=== PATIENT | female | born 1995 | race Caucasian/White ===

== ENCOUNTER 2022-04-05 13:25 | Inpatient (IN) | payer OTHER, SELFPAY ==
--- NOTE | ~2022-04-05 | CT_ITS ---
EXAMINATION: NONCONTRAST HEAD CT NONCONTRAST CERVICAL SPINE CT INDICATION INFORMATION: Syncope versus seizure. Head trauma and neck pain COMPARISON: None TECHNIQUE: Separate noncontrast CT examinations of the head and cervical spine were performed. Coronal and sagittal images were created for each examination at the technologist workstation. This CT examination was performed using dose optimization techniques as appropriate, variously including the following: *Automated exposure control *Adjustment of mA and/or kV according to patient size (this includes techniques or standardized protocols for targeted exams where dose is matched to indication/reason for exam; i.e. extremities or head) *Use of iterative reconstruction technique DLP: 1024 mGy-cm FINDINGS: HEAD: No intra or extra-axial fluid collection, hemorrhage, or mass. No ventriculomegaly. No midline shift or herniation. Basal cisterns are patent. Iglesias-white matter differentiation is maintained. No territorial encephalomalacia. No significant volume loss. There is no abnormal attenuation within the brain parenchyma. No calvarial fracture or soft tissue abnormality. Small mucous retention cyst in the left maxillary sinus. Mastoid air cells are normally aerated. CERVICAL SPINE: Alignment: Normal. No subluxation. Vertebra: No acute fracture. No prevertebral soft tissue swelling. Degenerative disc disease: No significant. Preserved intervertebral disc heights. Other findings: No cervical lymphadenopathy. Visualized major salivary glands and thyroid gland are unremarkable. Visualized lung apices are clear. CT/CT cervical spine wo con IMPRESSION: 1. No intracranial hemorrhage or other acute intracranial abnormality. 2. No traumatic subluxation or acute cervical spine fracture.
--- NOTE | ~2022-04-05 | US_ITS ---
EXAMINATION: US ABDOMEN COMPLETE CLINICAL INFORMATION: Abnormal abdominal CT. Check vascular flow to mesentery. Rule out Budd-Chiari and portal vein thrombosis.. COMPARISON: CT of the abdomen and pelvis from yesterday TECHNIQUE: Real-time imaging of the abdominal viscera. Doppler, color and grayscale evaluation of the hepatic and mesenteric vessels using grayscale, color Doppler and waveform spectral analysis FINDINGS: PANCREAS: Not well visualized. ABDOMINAL AORTA: The proximal, mid, and distal segments are normal in caliber. INFERIOR VENA CAVA: Visualized portions are normal. LIVER: Liver echotexture is increased. The liver is slightly enlarged, right lobe measuring 21 cm in length. Parenchymal echogenicity is normal. No focal hepatic lesion. There is no intrahepatic biliary duct dilatation seen. GALLBLADDER: Normal. The gallbladder is physiologically distended without evidence of stones, sludge, polyps, wall thickening or pericholecystic fluid. COMMON BILE DUCT: Normal in caliber measuring 0.4 cm in diameter. RIGHT KIDNEY: Normal. No hydronephrosis. No renal calculi or focal parenchymal lesions. The kidney measures 11.5 cm in maximum dimension. LEFT KIDNEY: Normal. No hydronephrosis. No renal calculi or focal parenchymal lesions. The kidney measures 11.5 cm in maximum dimension. SPLEEN: Normal. The spleen measures 8.7 cm in maximum dimension. FREE FLUID: None. Abdominal Doppler exam: The IVC is patent with normal waveform. The main right and left hepatic veins are patent with normal waveform. The extrahepatic, main right and left portal veins are patent with appropriate hepatopedal flow. The splenic vein is patent with appropriate hepatopedal flow. The main hepatic artery is patent. This demonstrates normal waveform and peak systolic velocity measuring 75 cm/s. The abdominal aorta is normal in caliber. Peak systolic velocity is normal. Peak systolic velocity proximal to the SMA measures 120 cm/s distal to the SMA measures 95 cm/s. The celiac axis appears patent. Celiac axis peak systolic velocity inspiration supine measures 114 cm/s in inspiration are recommended as 126 cm/s. The SMA is patent. The SMA peak systolic velocities are normal measuring 132, 123 and 103 cm/s proximally, in the midportion and distally. The CATA is patent. CATA. Velocity is normal measuring 134 cm/s. The splenic artery is patent. Splenic artery peak systolic velocity is 138 cm/s. US/US duplex arterial venous comp IMPRESSION: Slightly enlarged echogenic liver. Normal abdominal Doppler exam.
--- NOTE | ~2022-04-05 | XR_ITS ---
EXAMINATION: XR CHEST CLINICAL INFORMATION: Syncope versus seizure COMPARISON: None TECHNIQUE: Frontal view of the chest was obtained. FINDINGS: The lungs are clear. No airspace consolidation, pleural effusion, or pneumothorax. The cardiomediastinal silhouette is within normal limits. No acute osseous injury. XR/XR chest 1V IMPRESSION: No acute pulmonary process.
--- NOTE | ~2022-04-05 | CT_ITS ---
EXAMINATION: CT ABDOMEN AND PELVIS WITH CONTRAST CLINICAL INFORMATION: Abdominal tenderness, trauma COMPARISON: None TECHNIQUE: Multidetector volumetric images were obtained from the superior aspect of the liver through the pubic symphysis following administration 85 mL of Omnipaque 350 intravenous contrast. Sagittal and coronal reformatted images were obtained on the technologist's workstation. Oral contrast: No This CT examination was performed using dose optimization techniques as appropriate, variously including the following: *Automated exposure control *Adjustment of mA and/or kV according to patient size (this includes techniques or standardized protocols for targeted exams where dose is matched to indication/reason for exam; i.e. extremities or head) *Use of iterative reconstruction technique DLP: 1535 mGy-cm FINDINGS: LUNG BASES: Unremarkable. ABDOMINAL AND PELVIC WALL: Unremarkable. LIVER AND BILIARY TREE: Hypoattenuating hepatic parenchyma suggesting hepatic steatosis. GALLBLADDER: Unremarkable. PANCREAS: Unremarkable. SPLEEN: Unremarkable. ADRENAL GLANDS: Unremarkable. KIDNEYS AND URETERS: Unremarkable. GASTROINTESTINAL TRACT: Pancolonic wall thickening with prominence of the mesenteric vessels surrounding the sigmoid colon and subtle stratified bilaminar hyperenhancement. Terminal ileum is decompressed however is suspected to be mildly thick walled. Mildly dilated loops of small bowel measuring up to 3.1 cm, which transitions from dilated to decompressed bowel in the left pelvis, 24:61 with some moderate wall thickening at the transition point. No loss of bowel wall enhancement. No pneumatosis or portal venous gas. VASCULAR: Unremarkable. LYMPH NODES/PERITONEUM: No lymphadenopathy. FREE FLUID: None. BLADDER: Foci of gas are noted within the lumen of the bladder. PELVIC VISCERA: Tampon is present within the vagina. OSSEOUS STRUCTURES: Unremarkable. CT/CT abdomen pelvis w con IMPRESSION: Pancolonic wall thickening with prominence of the mesenteric vessels and stratified bilaminar enhancement with suspected wall thickening involving the terminal ileum, raising the suspicion for inflammatory bowel disease, although infectious enterocolitis could be considered. There are mildly dilated loops of small bowel measuring up to 3.1 cm which transitions in the left pelvis with some moderate wall thickening at the transition point raising the suspicion for a partial small bowel obstruction, possibly secondary to underlying stricture. Foci of gas are noted within the lumen of the bladder. Recommend correlation with any recent instrumentation. If findings are not iatrogenic, fistula or infection would be another differential considerations. Hypoattenuating hepatic parenchyma suggesting hepatic steatosis.
--- NOTE | ~2022-04-05 | CT_ITS ---
EXAMINATION: NONCONTRAST HEAD CT NONCONTRAST CERVICAL SPINE CT INDICATION INFORMATION: Syncope versus seizure. Head trauma and neck pain COMPARISON: None TECHNIQUE: Separate noncontrast CT examinations of the head and cervical spine were performed. Coronal and sagittal images were created for each examination at the technologist workstation. This CT examination was performed using dose optimization techniques as appropriate, variously including the following: *Automated exposure control *Adjustment of mA and/or kV according to patient size (this includes techniques or standardized protocols for targeted exams where dose is matched to indication/reason for exam; i.e. extremities or head) *Use of iterative reconstruction technique DLP: 1024 mGy-cm FINDINGS: HEAD: No intra or extra-axial fluid collection, hemorrhage, or mass. No ventriculomegaly. No midline shift or herniation. Basal cisterns are patent. Iglesias-white matter differentiation is maintained. No territorial encephalomalacia. No significant volume loss. There is no abnormal attenuation within the brain parenchyma. No calvarial fracture or soft tissue abnormality. Small mucous retention cyst in the left maxillary sinus. Mastoid air cells are normally aerated. CERVICAL SPINE: Alignment: Normal. No subluxation. Vertebra: No acute fracture. No prevertebral soft tissue swelling. Degenerative disc disease: No significant. Preserved intervertebral disc heights. Other findings: No cervical lymphadenopathy. Visualized major salivary glands and thyroid gland are unremarkable. Visualized lung apices are clear. CT/CT head/brain wo con IMPRESSION: 1. No intracranial hemorrhage or other acute intracranial abnormality. 2. No traumatic subluxation or acute cervical spine fracture.
--- NOTE | 2022-04-05 13:29 | ED_ITS ---
HPI - Seizure General Chief Complaint: Seizure <SOPHIE Carty - Last Filed: 04/05/22 21:21> Stated Complaint: SEIZURE <SOPHIE Carty - Last Filed: 04/05/22 21:21> Time Seen by Provider: 04/05/22 13:27 <SOPHIE Carty Last Filed: 04/05/22 21:21> Source: patient and EMS <SOPHIE Carty Last Filed: 04/05/22 21:21> Mode of arrival: EMS <SOPHIE Carty Last Filed: 04/05/22 21:21> History of Present Illness HPI Narrative: 26-year-old female with a past medical history of seizures on Lamictal and folic acid, BIBA form work s/p reported seizure in the bathroom with +head strike and +LOC. Patient states she was using the bathroom then woke up on the floor and colleagues were banging on the bathroom door, patient does not remember what happened, denies seizure prodrome. Reports tongue biting, denies incontinence. Patient reports headache, neck pain, back pain, and mild SOB. Admits to possibly missing some doses of her antiepileptic. Reports ETOH last night, denies EtOH today or illicit drugs. Denies recent illness, fever, chest pain, abdominal pain, vomiting, diarrhea. LMP now <SOPHIE Carty - Last Filed: 04/05/22 21:21> MD complaint: seizure <SOPHIE Carty - Last Filed: 04/05/22 21:21> Onset (ago): minute(s) <SOPHIE Carty Last Filed: 04/05/22 21:21> Related Data Home Medications: Previous Rx's Medication Instructions Recorded ciprofloxacin HCl 500 mg tablet 500 mg PO BID 7 days #14 tabs 04/05/22 metronidazole 500 mg tablet 500 mg PO Q8H 7 days #21 tabs 04/05/22 <SOPHIE Carty Last Filed: 04/05/22 21:21> Allergies/Adverse Reactions: Allergies Allergy/AdvReac Type Severity Reaction Status Date / Time No Known Allergies Allergy Verified 04/05/22 13:37 <SOPHIE Carty Last Filed: 04/05/22 21:21> Review of Systems Review of Systems: Constitutional:No Fever, No Chills, No Fatigue, No Malaise ENT/Mouth: No Ear Pain, No Nasal Congestion, No sore throat, No Rhinorrhea, No Swallowing Difficulty, +tongue biting Eyes: No Eye Pain, No Swelling, No Redness, No Vision Changes Cardiovascular: No Chest Pain, +o SOB, No Dyspnea on Exertion, No Orthopnea, No Edema, No Palpitations Respiratory: No Cough, No Sputum, No Dyspnea Gastrointestinal: +No Nausea, No Vomiting, No Diarrhea, No Constipation, No Abdominal pain Genitourinary: No irregular bleeding, No Dysuria, No Urinary Frequency, No Hematuria, No Urinary Incontinence/retention, No Urgency, No Flank Pain, No Urinary Flow Changes Musculoskeletal: + joint pain, No Myalgias, No Joint Swelling Skin: No Skin Lesions, No rash Neuro: No Weakness, No Numbness, No Paresthesias, + Loss of Consciousness, No Dizziness, + Headache <SOPHIE Carty - Last Filed: 04/05/22 21:21> Yes all other systems are reviewed and are negative <SOPHIE Carty - Last Filed: 04/05/22 21:21> Constitutional: Constitutional: Reports as per HPI <SOPHIE Carty - Last Filed: 04/05/22 21:21> Neurologic: Denies Abnormal speech present <SOPHIE Carty - Last Filed: 04/05/22 21:21> [facility] Past Medical History Attestation statement: The following information was validated with the patient. <SOPHIE Carty - Last Filed: 04/05/22 21:21> Social History Social History: Social History Advance Directives: No Advance Directives Information Provided: No <SOPHIE Carty Last Filed: 04/05/22 21:21> Physical Exam Vital Signs: Vital Signs: Last Vital Signs Temp 98.5 F 04/05/22 23:19 Pulse 63 04/05/22 23:19 Resp 16 04/05/22 23:19 BP 107/73 04/05/22 23:19 Pulse Ox 100 04/05/22 23:19 O2 Del Method 04/05/22 23:19 BMI result Body Mass Index 19.8 <SOPHIE Carty - Last Filed: 04/05/22 21:21> Vital Signs: Last Vital Signs Temp 98.5 F 04/05/22 23:19 Pulse 63 04/05/22 23:19 Resp 16 04/05/22 23:19 BP 107/73 04/05/22 23:19 Pulse Ox 100 04/05/22 23:19 O2 Del Method 04/05/22 23:19 BMI result Body Mass Index 19.8 <Rosa Cifuentes PA - Last Filed: 04/06/22 01:39> Const: Other: Anxious, tearful <SOPHIE Carty - Last Filed: 04/05/22 21:21> General: cooperative, healthy appearing, no acute distress and alert <SOPHIE Carty - Last Filed: 04/05/22 21:21> Orientation/consciousness: patient oriented x3 <SOPHIE Carty - Last Filed: 04/05/22 21:21> Limitations: no limitations <SOPHIE Carty - Last Filed: 04/05/22 21:21> HEENT: Head: Yes normal to inspection, Yes atraumatic, No Rahman's sign and No raccoon eyes <SOPHIE Carty - Last Filed: 04/05/22 21:21> Ears: hearing grossly normal bilaterally <SOPHIE Carty - Last Filed: 04/05/22 21:21> General nose exam: Normal external nose present <SOPHIE Carty - Last Filed: 04/05/22 21:21> Face and sinus: Yes normal facial exam <SOPHIE Carty - Last Filed: 04/05/22 21:21> Mouth: Normal oral and palatal mucosa present <SOPHIE Carty - Last Filed: 04/05/22 21:21> Throat: Yes posterior oropharynx normal and Yes tonsils normal <SOPHIE Carty - Last Filed: 04/05/22 21:21> Eyes: General: appearance normal, both eyes and all related structures <SOPHIE Carty - Last Filed: 04/05/22 21:21> Pupils: Equal, round and reactive pupils present <Jovita Sibley PA - Last Filed: 04/05/22 21:21> EOM: EOMs intact bilaterally <Jovita Pouliot, PA - Last Filed: 04/05/22 21:21> Neck: Other: C-collar in place. Midline cervical spinous tenderness noted <Jovita Pouliot, PA - Last Filed: 04/05/22 21:21> Neck: Yes normal visual inspection, Yes no meningeal signs and Yes supple <Jovita Pouliot, PA - Last Filed: 04/05/22 21:21> Resp: Effort & Inspection: normal respiratory effort and no respiratory distress <Jovita Pouliot, PA - Last Filed: 04/05/22 21:21> Auscultation: clear to auscultation bilaterally <Jovita Poulbonnyt, PA - Last Filed: 04/05/22 21:21> Cardio: Rate: regular rate <Jovita Poulbonnyt, PA - Last Filed: 04/05/22 21:21> Heart sounds: S1 normal heart sound present and S2 normal heart sound present <Jovita Pouliot, PA - Last Filed: 04/05/22 21:21> GI: Inspection: Yes normal to inspection <Jovita Pouliot, PA - Last Filed: 04/05/22 21:21> Palpation (GI): Soft to palpation, Tenderness to palpation present (GI) in the LLQ and in the RLQ; with no rebound tenderness, no guarding and not rigid <Jovita Poulbonnyt, PA - Last Filed: 04/05/22 21:21> : General: Yes no CVA tenderness <Jovita Pouliot, PA - Last Filed: 04/05/22 21:21> Back/Spine/Pelvis: Other: No midline thoracic/lumbar spinous tenderness/step-off or deformity <Jovita Pouliot, PA - Last Filed: 04/05/22 21:21> Back: no CVA tenderness <Jovita Pouliot, PA - Last Filed: 04/05/22 21:21> Skin: Rashes: no rashes <Jovita Pouliot, PA - Last Filed: 04/05/22 21:21> Wounds: no wounds <Jovita Pouliot, PA - Last Filed: 04/05/22 21:21> Neuro: Other: Strength intact throughout. Sensation intact to light touch. Neurovascular intact distally <SOPHIE Carty - Last Filed: 04/05/22 21:21> General: patient oriented x3, tone normal, moves all extremities, no meningeal signs, no focal motor deficits and CN's II-XI intact bilaterally <SOPHIE Carty - Last Filed: 04/05/22 21:21> Cranial nerves: Yes CN's II-XII intact bilaterally and Yes Equal, round and reactive pupils present <SOPHIE Carty - Last Filed: 04/05/22 21:21> Cognition (Neuro): normal cognition <SOPHIE Carty - Last Filed: 04/05/22 21:21> Speech: No Abnormal speech present <SOPHIE Carty - Last Filed: 04/05/22 21:21> Motor exam (neuro): 5/5 motor strength present throughout and no tremor noted <SOPHIE Carty - Last Filed: 04/05/22 21:21> Extrem: General: Yes normal to inspection <SOPHIE Carty - Last Filed: 04/05/22 21:21> Course Course Course Narrative: -1533--Mild pancytopenia, AST/ALT elevated > suspected from Chronic ETOH abuse, ethanol 304 -Lactic acid 4.0 consistent with seizure -calcium mildly low at 7.8 > likely from chronic ETOH abuse >suspect seizure 2/2 ETOH lowering seizure threshold & medication noncompliance -spoke with patient about chronic EtOH use/risks and detox which she is not interested in. 173--CT head/brain wo con/CT cervical spine wo con IMPRESSION: ? 1. No intracranial hemorrhage or other acute intracranial abnormality. 2. No traumatic subluxation or acute cervical spine fracture. CT abdomen pelvis w con IMPRESSION: Pancolonic wall thickening with prominence of the mesenteric vessels and stratified bilaminar enhancement with suspected wall thickening involving the terminal ileum, raising the suspicion for inflammatory bowel disease, although infectious enterocolitis could be considered. There are mildly dilated loops of small bowel measuring up to 3.1 cm which transitions in the left pelvis with some moderate wall thickening at the transition point raising the suspicion for a partial small bowel obstruction, possibly secondary to underlying stricture. ? Foci of gas are noted within the lumen of the bladder. Recommend correlation with any recent instrumentation. If findings are not iatrogenic, fistula or infection would be another differential considerations. ? Hypoattenuating hepatic parenchyma suggesting hepatic steatosis.? >> patient denies any recent urologic procedures or intercourse. Reports last BM this morning. Will consult General surgery Dr. Lucero & GI Dr. Cedillo --on re-evaluation patient is sleeping, easily arousable to voice. -1851--spoke with GI, Dr. Cedillo, recommended stool studies and antibiotics if patient is tender -Dr. Lucero evaluated patient in the ED, abdomen is nonsurgical, recommended GI evaluation outpatient -2013--repeat BMP with mild improvement to 3.4 > will give additional L IVF and repeat. On re-evaluation abdomen is soft only minimally tender in LUQ, will treat for colitis with p.o. antibiotics. Discussed results with patient including needed close follow-up with GI outpatient, she verbalized understanding. UA with + nitrite, wbc's, and bacteria with only trace epithelials > will treat for UTI -2099--ED care transferred to SOPHIE Lee pending IVF and repeat lactic acid. Anticipate discharge home <SOPHIE Carty - Last Filed: 04/05/22 21:21> -1533--Mild pancytopenia, AST/ALT elevated > suspected from Chronic ETOH abuse, ethanol 304 -Lactic acid 4.0 consistent with seizure -calcium mildly low at 7.8 > likely from chronic ETOH abuse >suspect seizure 2/2 ETOH lowering seizure threshold & medication noncompliance -spoke with patient about chronic EtOH use/risks and detox which she is not interested in. 1738--CT head/brain wo con/CT cervical spine wo con IMPRESSION: ? 1. No intracranial hemorrhage or other acute intracranial abnormality. 2. No traumatic subluxation or acute cervical spine fracture. CT abdomen pelvis w con IMPRESSION: Pancolonic wall thickening with prominence of the mesenteric vessels and stratified bilaminar enhancement with suspected wall thickening involving the terminal ileum, raising the suspicion for inflammatory bowel disease, although infectious enterocolitis could be considered. There are mildly dilated loops of small bowel measuring up to 3.1 cm which transitions in the left pelvis with some moderate wall thickening at the transition point raising the suspicion for a partial small bowel obstruction, possibly secondary to underlying stricture. ? Foci of gas are noted within the lumen of the bladder. Recommend correlation with any recent instrumentation. If findings are not iatrogenic, fistula or infection would be another differential considerations. ? Hypoattenuating hepatic parenchyma suggesting hepatic steatosis.? >> patient denies any recent urologic procedures or intercourse. Reports last BM this morning. Will consult General surgery Dr. Lucero & GI Dr. Cedillo --on re-evaluation patient is sleeping, easily arousable to voice. -1851--spoke with GI, Dr. Cedillo, recommended stool studies and antibiotics if patient is tender -Dr. Lucero evaluated patient in the ED, abdomen is nonsurgical, recommended GI evaluation outpatient -2013--repeat BMP with mild improvement to 3.4 > will give additional L IVF and repeat. On re-evaluation abdomen is soft only minimally tender in LUQ, will treat for colitis with p.o. antibiotics. Discussed results with patient including needed close follow-up with GI outpatient, she verbalized understanding. UA with + nitrite, wbc's, and bacteria with only trace epithelials > will treat for UTI -2099--ED care transferred to SOPHIE Lee pending IVF and repeat lactic acid. Anticipate discharge home -010 (04/06/2022) -- Patient's lactic acid went back up to 3.7. I consulted Dr. Vences who recommended the patient be admitted. I spoke to the patient who agreed with hospital admission. I spoke to Dr. German, the hospitalist corporate communications manager, who agreed to hospital admission. Patient given IV Flagyl and Levaquin for her pancolitis. <SOPHIE Mccarty - Last Filed: 04/06/22 01:39> MDM - Seizure MDM Narrative Medical decision making narrative: 26-year-old female with a past medical history of seizures on Lamictal and folic acid, BIBA form work s/p reported seizure in the bathroom with +head strike and +LOC. reports headache, neck pain, back pain, and mild SOB. On exam vital signs stable, NAD, anxious, tearful, C-collar in place, physical exam as above. No focal neuro deficits. Concern for seizure secondary to medication noncompliance vs syncope vs metabolic/infectious etiologies vs substance abuse. Rule out ICH/fractures and intra-abdominal pathology. Lower suspicion for PE Plan: EKG, labs, UA, CXR, head/C-spine/abdomen/pelvis CT, drug screen, re- evaluate <SOPHIE Carty - Last Filed: 04/05/22 21:21> Differential Diagnosis Differential diagnosis: Likely focal seizure, generalized seizure and epileptic seizure <SOPHIE Carty - Last Filed: 04/05/22 21:21> Medical Records Attestation: I reviewed the patient's medical records. <SOPHIE Carty - Last Filed: 04/05/22 21:21> Lab Data Attestation: I reviewed the patient's lab results. <SOPHIE Carty - Last Filed: 04/05/22 21:21> Result diagrams: : 04/05/22 14:50 04/05/22 14:50 <SOPHIE Carty - Last Filed: 04/05/22 21:21> Labs: Lab Results 04/05/22 04/05/22 04/05/22 Range/Units 14:50 14:50 14:50 WBC 4.0 L (4.8-10.8) X10*3/uL RBC 3.26 L (4.20-5.50) X10*6/uL Hgb 11.1 L (12.0-16.0) g/dl Hct 32.8 L (37.0-47.0) % MCV 100.6 H (80.0-98.0) fL MCH 34.0 H (27.0-33.0) pg MCHC 33.8 (31.0-35.0) g/dl RDW 12.7 (11.0-16.0) % Plt Count 119 L (160-400) X10*3/uL MPV 9.8 (9.4-12.3) fL Immature Gran % (Auto) 0.3 (0.0-0.4) % Neut % (Auto) 53.4 (45-73) % Lymph % (Auto) 34.5 (20-40) % Morris % (Auto) 9.5 (2-11) % Eos % (Auto) 1.5 (0-4) % Baso % (Auto) 0.8 (0-2) % Lymph # (Auto) 1.4 (1.2-4.9) X10*3/uL Morris # (Auto) 0.4 (0.1-1.2) X10*3/uL Eos # (Auto) 0.1 (0.0-0.4) X10*3/uL Baso # (Auto) 0.0 (0.0-0.2) X10*3/uL Abs Immat Gran (auto) 0.01 (0.00-0.03) X10*3/uL Absolute Neuts (auto) 2.1 (2.0-8.3) x10*3/uL Absolute Nucleated RBC 0.000 (0.0-0.012) X10*3/uL Nucleated RBC % (auto) 0.0 (0.0-0.2) /100WBC Sodium 142 (135-145) mmol/L Potassium 3.6 (3.3-5.1) mmol/L Chloride 105 (96-108) mmol/L Carbon Dioxide 20 L (22-29) mmol/L Anion Gap 21 H (12-20) BUN 9 (9-16) mg/dL Creatinine 0.69 (0.5-1.4) mg/dL Estim Creat Clear Calc 113.0 Estimated GFR > 60 Random Glucose 92 (60-115) mg/dL Lactic Acid 4.2 H* (0.5-2.0) mmol/L Lactic Acid F/U @ 2Hr (0.5-2.0) mmol/L Lactic Acid F/U @ 4Hr (0.5-2.0) mmol/L Calcium 7.8 L (8.4-10.2) mg/dL Magnesium 1.9 (1.6-2.6) mg/dL Total Bilirubin 0.9 (0.0-1.0) mg/dL Direct Bilirubin 0.5 (0.0-0.5) mg/dL AST 123 H (5-31) U/L ALT 47 H (0-31) U/L Alkaline Phosphatase 50 (39-117) U/L Troponin I High Sens (<3.5-17.0) ng/L Total Protein 6.5 (6.5-8.0) g/dL Albumin 3.6 (3.5-5.0) g/dL Amylase 43 (28-100) U/L Lipase 29 (8-78) U/L Beta HCG, Quant < 2 mIU/mL Urine Color Urine Appearance Urine pH (5.0-8.0) Ur Specific [place] (1.005-1.025) Urine Protein (NEG-TRACE) MG/DL Urine Glucose (UA) (NEG) MG/DL Urine Ketones (NEG) MG/DL Urine Blood (NEG) Urine Nitrite (NEG) Ur Leukocyte Esterase (NEG) Urine RBC (0) /HPF Urine WBC (0-4) /HPF Ur Squamous Epith Cells /LPF Urine Bacteria /LPF Hyaline Casts /LPF Urine Mucus /LPF Urine Test (NEGATIVE) Salicylates < 5.0 L (15-30) mg/dL Urine Opiates Screen (Not Detect) Urine Fentanyl Screen (Not Detect) Acetaminophen < 1 (<30) mcg/mL Ur Barbiturates Screen (Not Detect) Ur Phencyclidine Scrn (Not Detect) Ur Amphetamines Screen (Not Detect) U Benzodiazepines Scrn (Not Detect) Urine Cocaine Screen (Not Detect) U Marijuana (THC) Screen (Not Detect) Ethyl Alcohol 304 H* mg/dL COVID-19 (JOHNNY) (Negative) COVID-19 Clin Com 04/05/22 04/05/22 04/05/22 Range/Units 14:50 14:50 19:33 WBC (4.8-10.8) X10*3/uL RBC (4.20-5.50) X10*6/uL Hgb (12.0-16.0) g/dl Hct (37.0-47.0) % MCV (80.0-98.0) fL MCH (27.0-33.0) pg MCHC (31.0-35.0) g/dl RDW (11.0-16.0) % Plt Count (160-400) X10*3/uL MPV (9.4-12.3) fL Immature Gran % (Auto) (0.0-0.4) % Neut % (Auto) (45-73) % Lymph % (Auto) (20-40) % Morris % (Auto) (2-11) % Eos % (Auto) (0-4) % Baso % (Auto) (0-2) % Lymph # (Auto) (1.2-4.9) X10*3/uL Morris # (Auto) (0.1-1.2) X10*3/uL Eos # (Auto) (0.0-0.4) X10*3/uL Baso # (Auto) (0.0-0.2) X10*3/uL Abs Immat Gran (auto) (0.00-0.03) X10*3/uL Absolute Neuts (auto) (2.0-8.3) x10*3/uL Absolute Nucleated RBC (0.0-0.012) X10*3/uL Nucleated RBC % (auto) (0.0-0.2) /100WBC Sodium (135-145) mmol/L Potassium (3.3-5.1) mmol/L Chloride (96-108) mmol/L Carbon Dioxide (22-29) mmol/L Anion Gap (12-20) BUN (9-16) mg/dL Creatinine (0.5-1.4) mg/dL Estim Creat Clear Calc Estimated GFR Random Glucose (60-115) mg/dL Lactic Acid (0.5-2.0) mmol/L Lactic Acid F/U @ 2Hr (0.5-2.0) mmol/L Lactic Acid F/U @ 4Hr (0.5-2.0) mmol/L Calcium (8.4-10.2) mg/dL Magnesium (1.6-2.6) mg/dL Total Bilirubin (0.0-1.0) mg/dL Direct Bilirubin (0.0-0.5) mg/dL AST (5-31) U/L ALT (0-31) U/L Alkaline Phosphatase (39-117) U/L Troponin I High Sens < 3.5 (<3.5-17.0) ng/L Total Protein (6.5-8.0) g/dL Albumin (3.5-5.0) g/dL Amylase (28-100) U/L Lipase (8-78) U/L Beta HCG, Quant mIU/mL Urine Color YELLOW Urine Appearance CLEAR Urine pH 5.0 (5.0-8.0) Ur Specific [place] 1.010 (1.005-1.025) Urine Protein NEG (NEG-TRACE) MG/DL Urine Glucose (UA) NEG (NEG) MG/DL Urine Ketones NEG (NEG) MG/DL Urine Blood NEG (NEG) Urine Nitrite POS H (NEG) Ur Leukocyte Esterase NEG (NEG) Urine RBC 0-2 (0) /HPF Urine WBC 5-9 H (0-4) /HPF Ur Squamous Epith Cells TRACE /LPF Urine Bacteria 4+ /LPF Hyaline Casts 0-2 /LPF Urine Mucus TRACE /LPF Urine Test (NEGATIVE) Salicylates (15-30) mg/dL Urine Opiates Screen (Not Detect) Urine Fentanyl Screen (Not Detect) Acetaminophen (<30) mcg/mL Ur Barbiturates Screen (Not Detect) Ur Phencyclidine Scrn (Not Detect) Ur Amphetamines Screen (Not Detect) U Benzodiazepines Scrn (Not Detect) Urine Cocaine Screen (Not Detect) U Marijuana (THC) Screen (Not Detect) Ethyl Alcohol mg/dL COVID-19 (JOHNNY) Negative (Negative) COVID-19 Clin Com See Note 04/05/22 04/05/22 04/05/22 Range/Units 19:33 19:33 19:35 WBC (4.8-10.8) X10*3/uL RBC (4.20-5.50) X10*6/uL Hgb (12.0-16.0) g/dl Hct (37.0-47.0) % MCV (80.0-98.0) fL MCH (27.0-33.0) pg MCHC (31.0-35.0) g/dl RDW (11.0-16.0) % Plt Count (160-400) X10*3/uL MPV (9.4-12.3) fL Immature Gran % (Auto) (0.0-0.4) % Neut % (Auto) (45-73) % Lymph % (Auto) (20-40) % Morris % (Auto) (2-11) % Eos % (Auto) (0-4) % Baso % (Auto) (0-2) % Lymph # (Auto) (1.2-4.9) X10*3/uL Morris # (Auto) (0.1-1.2) X10*3/uL Eos # (Auto) (0.0-0.4) X10*3/uL Baso # (Auto) (0.0-0.2) X10*3/uL Abs Immat Gran (auto) (0.00-0.03) X10*3/uL Absolute Neuts (auto) (2.0-8.3) x10*3/uL Absolute Nucleated RBC (0.0-0.012) X10*3/uL Nucleated RBC % (auto) (0.0-0.2) /100WBC Sodium (135-145) mmol/L Potassium (3.3-5.1) mmol/L Chloride (96-108) mmol/L Carbon Dioxide (22-29) mmol/L Anion Gap (12-20) BUN (9-16) mg/dL Creatinine (0.5-1.4) mg/dL Estim Creat Clear Calc Estimated GFR Random Glucose (60-115) mg/dL Lactic Acid (0.5-2.0) mmol/L Lactic Acid F/U @ 2Hr 3.4 H* (0.5-2.0) mmol/L Lactic Acid F/U @ 4Hr (0.5-2.0) mmol/L Calcium (8.4-10.2) mg/dL Magnesium (1.6-2.6) mg/dL Total Bilirubin (0.0-1.0) mg/dL Direct Bilirubin (0.0-0.5) mg/dL AST (5-31) U/L ALT (0-31) U/L Alkaline Phosphatase (39-117) U/L Troponin I High Sens (<3.5-17.0) ng/L Total Protein (6.5-8.0) g/dL Albumin (3.5-5.0) g/dL Amylase (28-100) U/L Lipase (8-78) U/L Beta HCG, Quant mIU/mL Urine Color Urine Appearance Urine pH (5.0-8.0) Ur Specific [place] (1.005-1.025) Urine Protein (NEG-TRACE) MG/DL Urine Glucose (UA) (NEG) MG/DL Urine Ketones (NEG) MG/DL Urine Blood (NEG) Urine Nitrite (NEG) Ur Leukocyte Esterase (NEG) Urine RBC (0) /HPF Urine WBC (0-4) /HPF Ur Squamous Epith Cells /LPF Urine Bacteria /LPF Hyaline Casts /LPF Urine Mucus /LPF Urine Test NEGATIVE (NEGATIVE) Salicylates (15-30) mg/dL Urine Opiates Screen Not Detected (Not Detect) Urine Fentanyl Screen Not Detected (Not Detect) Acetaminophen (<30) mcg/mL Ur Barbiturates Screen Not Detected (Not Detect) Ur Phencyclidine Scrn Not Detected (Not Detect) Ur Amphetamines Screen Not Detected (Not Detect) U Benzodiazepines Scrn Not Detected (Not Detect) Urine Cocaine Screen Not Detected (Not Detect) U Marijuana (THC) Screen POSITIVE H (Not Detect) Ethyl Alcohol mg/dL COVID-19 (JOHNNY) (Negative) COVID-19 Clin Com 04/05/22 Range/Units 23:17 WBC (4.8-10.8) X10*3/uL RBC (4.20-5.50) X10*6/uL Hgb (12.0-16.0) g/dl Hct (37.0-47.0) % MCV (80.0-98.0) fL MCH (27.0-33.0) pg MCHC (31.0-35.0) g/dl RDW (11.0-16.0) % Plt Count (160-400) X10*3/uL MPV (9.4-12.3) fL Immature Gran % (Auto) (0.0-0.4) % Neut % (Auto) (45-73) % Lymph % (Auto) (20-40) % Morris % (Auto) (2-11) % Eos % (Auto) (0-4) % Baso % (Auto) (0-2) % Lymph # (Auto) (1.2-4.9) X10*3/uL Morris # (Auto) (0.1-1.2) X10*3/uL Eos # (Auto) (0.0-0.4) X10*3/uL Baso # (Auto) (0.0-0.2) X10*3/uL Abs Immat Gran (auto) (0.00-0.03) X10*3/uL Absolute Neuts (auto) (2.0-8.3) x10*3/uL Absolute Nucleated RBC (0.0-0.012) X10*3/uL Nucleated RBC % (auto) (0.0-0.2) /100WBC Sodium (135-145) mmol/L Potassium (3.3-5.1) mmol/L Chloride (96-108) mmol/L Carbon Dioxide (22-29) mmol/L Anion Gap (12-20) BUN (9-16) mg/dL Creatinine (0.5-1.4) mg/dL Estim Creat Clear Calc Estimated GFR Random Glucose (60-115) mg/dL Lactic Acid (0.5-2.0) mmol/L Lactic Acid F/U @ 2Hr (0.5-2.0) mmol/L Lactic Acid F/U @ 4Hr 3.7 H* (0.5-2.0) mmol/L Calcium (8.4-10.2) mg/dL Magnesium (1.6-2.6) mg/dL Total Bilirubin (0.0-1.0) mg/dL Direct Bilirubin (0.0-0.5) mg/dL AST (5-31) U/L ALT (0-31) U/L Alkaline Phosphatase (39-117) U/L Troponin I High Sens (<3.5-17.0) ng/L Total Protein (6.5-8.0) g/dL Albumin (3.5-5.0) g/dL Amylase (28-100) U/L Lipase (8-78) U/L Beta HCG, Quant mIU/mL Urine Color Urine Appearance Urine pH (5.0-8.0) Ur Specific [place] (1.005-1.025) Urine Protein (NEG-TRACE) MG/DL Urine Glucose (UA) (NEG) MG/DL Urine Ketones (NEG) MG/DL Urine Blood (NEG) Urine Nitrite (NEG) Ur Leukocyte Esterase (NEG) Urine RBC (0) /HPF Urine WBC (0-4) /HPF Ur Squamous Epith Cells /LPF Urine Bacteria /LPF Hyaline Casts /LPF Urine Mucus /LPF Urine Test (NEGATIVE) Salicylates (15-30) mg/dL Urine Opiates Screen (Not Detect) Urine Fentanyl Screen (Not Detect) Acetaminophen (<30) mcg/mL Ur Barbiturates Screen (Not Detect) Ur Phencyclidine Scrn (Not Detect) Ur Amphetamines Screen (Not Detect) U Benzodiazepines Scrn (Not Detect) Urine Cocaine Screen (Not Detect) U Marijuana (THC) Screen (Not Detect) Ethyl Alcohol mg/dL COVID-19 ([facility]) (Negative) COVID-19 Clin Com <Jovita Pouliot, PA - Last Filed: 04/05/22 21:21> Lab Results 04/05/22 04/05/22 04/05/22 Range/Units 14:50 14:50 14:50 WBC 4.0 L (4.8-10.8) X10*3/uL RBC 3.26 L (4.20-5.50) X10*6/uL Hgb 11.1 L (12.0-16.0) g/dl Hct 32.8 L (37.0-47.0) % MCV 100.6 H (80.0-98.0) fL MCH 34.0 H (27.0-33.0) pg MCHC 33.8 (31.0-35.0) g/dl RDW 12.7 (11.0-16.0) % Plt Count 119 L (160-400) X10*3/uL MPV 9.8 (9.4-12.3) fL Immature Gran % (Auto) 0.3 (0.0-0.4) % Neut % (Auto) 53.4 (45-73) % Lymph % (Auto) 34.5 (20-40) % Morris % (Auto) 9.5 (2-11) % Eos % (Auto) 1.5 (0-4) % Baso % (Auto) 0.8 (0-2) % Lymph # (Auto) 1.4 (1.2-4.9) X10*3/uL Morris # (Auto) 0.4 (0.1-1.2) X10*3/uL Eos # (Auto) 0.1 (0.0-0.4) X10*3/uL Baso # (Auto) 0.0 (0.0-0.2) X10*3/uL Abs Immat Gran (auto) 0.01 (0.00-0.03) X10*3/uL Absolute Neuts (auto) 2.1 (2.0-8.3) x10*3/uL Absolute Nucleated RBC 0.000 (0.0-0.012) X10*3/uL Nucleated RBC % (auto) 0.0 (0.0-0.2) /100WBC Sodium 142 (135-145) mmol/L Potassium 3.6 (3.3-5.1) mmol/L Chloride 105 (96-108) mmol/L Carbon Dioxide 20 L (22-29) mmol/L Anion Gap 21 H (12-20) BUN 9 (9-16) mg/dL Creatinine 0.69 (0.5-1.4) mg/dL Estim Creat Clear Calc 113.0 Estimated GFR > 60 Random Glucose 92 (60-115) mg/dL Lactic Acid 4.2 H* (0.5-2.0) mmol/L Lactic Acid F/U @ 2Hr (0.5-2.0) mmol/L Lactic Acid F/U @ 4Hr (0.5-2.0) mmol/L Calcium 7.8 L (8.4-10.2) mg/dL Magnesium 1.9 (1.6-2.6) mg/dL Total Bilirubin 0.9 (0.0-1.0) mg/dL Direct Bilirubin 0.5 (0.0-0.5) mg/dL AST 123 H (5-31) U/L ALT 47 H (0-31) U/L Alkaline Phosphatase 50 (39-117) U/L Troponin I High Sens (<3.5-17.0) ng/L Total Protein 6.5 (6.5-8.0) g/dL Albumin 3.6 (3.5-5.0) g/dL Amylase 43 (28-100) U/L Lipase 29 (8-78) U/L Beta HCG, Quant < 2 mIU/mL Urine Color Urine Appearance Urine pH (5.0-8.0) Ur Specific [place] (1.005-1.025) Urine Protein (NEG-TRACE) MG/DL Urine Glucose (UA) (NEG) MG/DL Urine Ketones (NEG) MG/DL Urine Blood (NEG) Urine Nitrite (NEG) Ur Leukocyte Esterase (NEG) Urine RBC (0) /HPF Urine WBC (0-4) /HPF Ur Squamous Epith Cells /LPF Urine Bacteria /LPF Hyaline Casts /LPF Urine Mucus /LPF Urine Test (NEGATIVE) Salicylates < 5.0 L (15-30) mg/dL Urine Opiates Screen (Not Detect) Urine Fentanyl Screen (Not Detect) Acetaminophen < 1 (<30) mcg/mL Ur Barbiturates Screen (Not Detect) Ur Phencyclidine Scrn (Not Detect) Ur Amphetamines Screen (Not Detect) U Benzodiazepines Scrn (Not Detect) Urine Cocaine Screen (Not Detect) U Marijuana (THC) Screen (Not Detect) Ethyl Alcohol 304 H* mg/dL COVID-19 (JOHNNY) (Negative) COVID-19 Clin Com 04/05/22 04/05/22 04/05/22 Range/Units 14:50 14:50 19:33 WBC (4.8-10.8) X10*3/uL RBC (4.20-5.50) X10*6/uL Hgb (12.0-16.0) g/dl Hct (37.0-47.0) % MCV (80.0-98.0) fL MCH (27.0-33.0) pg MCHC (31.0-35.0) g/dl RDW (11.0-16.0) % Plt Count (160-400) X10*3/uL MPV (9.4-12.3) fL Immature Gran % (Auto) (0.0-0.4) % Neut % (Auto) (45-73) % Lymph % (Auto) (20-40) % Morris % (Auto) (2-11) % Eos % (Auto) (0-4) % Baso % (Auto) (0-2) % Lymph # (Auto) (1.2-4.9) X10*3/uL Morris # (Auto) (0.1-1.2) X10*3/uL Eos # (Auto) (0.0-0.4) X10*3/uL Baso # (Auto) (0.0-0.2) X10*3/uL Abs Immat Gran (auto) (0.00-0.03) X10*3/uL Absolute Neuts (auto) (2.0-8.3) x10*3/uL Absolute Nucleated RBC (0.0-0.012) X10*3/uL Nucleated RBC % (auto) (0.0-0.2) /100WBC Sodium (135-145) mmol/L Potassium (3.3-5.1) mmol/L Chloride (96-108) mmol/L Carbon Dioxide (22-29) mmol/L Anion Gap (12-20) BUN (9-16) mg/dL Creatinine (0.5-1.4) mg/dL Estim Creat Clear Calc Estimated GFR Random Glucose (60-115) mg/dL Lactic Acid (0.5-2.0) mmol/L Lactic Acid F/U @ 2Hr (0.5-2.0) mmol/L Lactic Acid F/U @ 4Hr (0.5-2.0) mmol/L Calcium (8.4-10.2) mg/dL Magnesium (1.6-2.6) mg/dL Total Bilirubin (0.0-1.0) mg/dL Direct Bilirubin (0.0-0.5) mg/dL AST (5-31) U/L ALT (0-31) U/L Alkaline Phosphatase (39-117) U/L Troponin I High Sens < 3.5 (<3.5-17.0) ng/L Total Protein (6.5-8.0) g/dL Albumin (3.5-5.0) g/dL Amylase (28-100) U/L Lipase (8-78) U/L Beta HCG, Quant mIU/mL Urine Color YELLOW Urine Appearance CLEAR Urine pH 5.0 (5.0-8.0) Ur Specific [place] 1.010 (1.005-1.025) Urine Protein NEG (NEG-TRACE) MG/DL Urine Glucose (UA) NEG (NEG) MG/DL Urine Ketones NEG (NEG) MG/DL Urine Blood NEG (NEG) Urine Nitrite POS H (NEG) Ur Leukocyte Esterase NEG (NEG) Urine RBC 0-2 (0) /HPF Urine WBC 5-9 H (0-4) /HPF Ur Squamous Epith Cells TRACE /LPF Urine Bacteria 4+ /LPF Hyaline Casts 0-2 /LPF Urine Mucus TRACE /LPF Urine Test (NEGATIVE) Salicylates (15-30) mg/dL Urine Opiates Screen (Not Detect) Urine Fentanyl Screen (Not Detect) Acetaminophen (<30) mcg/mL Ur Barbiturates Screen (Not Detect) Ur Phencyclidine Scrn (Not Detect) Ur Amphetamines Screen (Not Detect) U Benzodiazepines Scrn (Not Detect) Urine Cocaine Screen (Not Detect) U Marijuana (THC) Screen (Not Detect) Ethyl Alcohol mg/dL COVID-19 (JOHNNY) Negative (Negative) COVID-19 Clin Com See Note 04/05/22 04/05/22 04/05/22 Range/Units 19:33 19:33 19:35 WBC (4.8-10.8) X10*3/uL RBC (4.20-5.50) X10*6/uL Hgb (12.0-16.0) g/dl Hct (37.0-47.0) % MCV (80.0-98.0) fL MCH (27.0-33.0) pg MCHC (31.0-35.0) g/dl RDW (11.0-16.0) % Plt Count (160-400) X10*3/uL MPV (9.4-12.3) fL Immature Gran % (Auto) (0.0-0.4) % Neut % (Auto) (45-73) % Lymph % (Auto) (20-40) % Morris % (Auto) (2-11) % Eos % (Auto) (0-4) % Baso % (Auto) (0-2) % Lymph # (Auto) (1.2-4.9) X10*3/uL Morris # (Auto) (0.1-1.2) X10*3/uL Eos # (Auto) (0.0-0.4) X10*3/uL Baso # (Auto) (0.0-0.2) X10*3/uL Abs Immat Gran (auto) (0.00-0.03) X10*3/uL Absolute Neuts (auto) (2.0-8.3) x10*3/uL Absolute Nucleated RBC (0.0-0.012) X10*3/uL Nucleated RBC % (auto) (0.0-0.2) /100WBC Sodium (135-145) mmol/L Potassium (3.3-5.1) mmol/L Chloride (96-108) mmol/L Carbon Dioxide (22-29) mmol/L Anion Gap (12-20) BUN (9-16) mg/dL Creatinine (0.5-1.4) mg/dL Estim Creat Clear Calc Estimated GFR Random Glucose (60-115) mg/dL Lactic Acid (0.5-2.0) mmol/L Lactic Acid F/U @ 2Hr 3.4 H* (0.5-2.0) mmol/L Lactic Acid F/U @ 4Hr (0.5-2.0) mmol/L Calcium (8.4-10.2) mg/dL Magnesium (1.6-2.6) mg/dL Total Bilirubin (0.0-1.0) mg/dL Direct Bilirubin (0.0-0.5) mg/dL AST (5-31) U/L ALT (0-31) U/L Alkaline Phosphatase (39-117) U/L Troponin I High Sens (<3.5-17.0) ng/L Total Protein (6.5-8.0) g/dL Albumin (3.5-5.0) g/dL Amylase (28-100) U/L Lipase (8-78) U/L Beta HCG, Quant mIU/mL Urine Color Urine Appearance Urine pH (5.0-8.0) Ur Specific [place] (1.005-1.025) Urine Protein (NEG-TRACE) MG/DL Urine Glucose (UA) (NEG) MG/DL Urine Ketones (NEG) MG/DL Urine Blood (NEG) Urine Nitrite (NEG) Ur Leukocyte Esterase (NEG) Urine RBC (0) /HPF Urine WBC (0-4) /HPF Ur Squamous Epith Cells /LPF Urine Bacteria /LPF Hyaline Casts /LPF Urine Mucus /LPF Urine Test NEGATIVE (NEGATIVE) Salicylates (15-30) mg/dL Urine Opiates Screen Not Detected (Not Detect) Urine Fentanyl Screen Not Detected (Not Detect) Acetaminophen (<30) mcg/mL Ur Barbiturates Screen Not Detected (Not Detect) Ur Phencyclidine Scrn Not Detected (Not Detect) Ur Amphetamines Screen Not Detected (Not Detect) U Benzodiazepines Scrn Not Detected (Not Detect) Urine Cocaine Screen Not Detected (Not Detect) U Marijuana (THC) Screen POSITIVE H (Not Detect) Ethyl Alcohol mg/dL COVID-19 ([facility]OHNNY) (Negative) COVID-19 Clin Com 04/05/22 Range/Units 23:17 WBC (4.8-10.8) X10*3/uL RBC (4.20-5.50) X10*6/uL Hgb (12.0-16.0) g/dl Hct (37.0-47.0) % MCV (80.0-98.0) fL MCH (27.0-33.0) pg MCHC (31.0-35.0) g/dl RDW (11.0-16.0) % Plt Count (160-400) X10*3/uL MPV (9.4-12.3) fL Immature Gran % (Auto) (0.0-0.4) % Neut % (Auto) (45-73) % Lymph % (Auto) (20-40) % Morris % (Auto) (2-11) % Eos % (Auto) (0-4) % Baso % (Auto) (0-2) % Lymph # (Auto) (1.2-4.9) X10*3/uL Morris # (Auto) (0.1-1.2) X10*3/uL Eos # (Auto) (0.0-0.4) X10*3/uL Baso # (Auto) (0.0-0.2) X10*3/uL Abs Immat Gran (auto) (0.00-0.03) X10*3/uL Absolute Neuts (auto) (2.0-8.3) x10*3/uL Absolute Nucleated RBC (0.0-0.012) X10*3/uL Nucleated RBC % (auto) (0.0-0.2) /100WBC Sodium (135-145) mmol/L Potassium (3.3-5.1) mmol/L Chloride (96-108) mmol/L Carbon Dioxide (22-29) mmol/L Anion Gap (12-20) BUN (9-16) mg/dL Creatinine (0.5-1.4) mg/dL Estim Creat Clear Calc Estimated GFR Random Glucose (60-115) mg/dL Lactic Acid (0.5-2.0) mmol/L Lactic Acid F/U @ 2Hr (0.5-2.0) mmol/L Lactic Acid F/U @ 4Hr 3.7 H* (0.5-2.0) mmol/L Calcium (8.4-10.2) mg/dL Magnesium (1.6-2.6) mg/dL Total Bilirubin (0.0-1.0) mg/dL Direct Bilirubin (0.0-0.5) mg/dL AST (5-31) U/L ALT (0-31) U/L Alkaline Phosphatase (39-117) U/L Troponin I High Sens (<3.5-17.0) ng/L Total Protein (6.5-8.0) g/dL Albumin (3.5-5.0) g/dL Amylase (28-100) U/L Lipase (8-78) U/L Beta HCG, Quant mIU/mL Urine Color Urine Appearance Urine pH (5.0-8.0) Ur Specific [place] (1.005-1.025) Urine Protein (NEG-TRACE) MG/DL Urine Glucose (UA) (NEG) MG/DL Urine Ketones (NEG) MG/DL Urine Blood (NEG) Urine Nitrite (NEG) Ur Leukocyte Esterase (NEG) Urine RBC (0) /HPF Urine WBC (0-4) /HPF Ur Squamous Epith Cells /LPF Urine Bacteria /LPF Hyaline Casts /LPF Urine Mucus /LPF Urine Test (NEGATIVE) Salicylates (15-30) mg/dL Urine Opiates Screen (Not Detect) Urine Fentanyl Screen (Not Detect) Acetaminophen (<30) mcg/mL Ur Barbiturates Screen (Not Detect) Ur Phencyclidine Scrn (Not Detect) Ur Amphetamines Screen (Not Detect) U Benzodiazepines Scrn (Not Detect) Urine Cocaine Screen (Not Detect) U Marijuana (THC) Screen (Not Detect) Ethyl Alcohol mg/dL COVID-19 ([facility]NNY) (Negative) COVID-19 Clin Com <SOPHIE Mccarty - Last Filed: 04/06/22 01:39> ECG Data Attestation: I personally reviewed and interpreted this ECG as follows: <SOPHIE Carty - Last Filed: 04/05/22 21:21> ECG interpretation date: 04/05/22 <SOPHIE Carty - Last Filed: 04/05/22 21:21> ECG interpretation time: 14:25 <SOPHIE Carty - Last Filed: 04/05/22 21:21> Interpretation: EKG normal sinus rhythm at a rate is 70. QTC 483. No STEMI. Nonischemic <SOPHIE Carty - Last Filed: 04/05/22 21:21> Critical Care Time Critical Care Time Critical Care Time: Yes <SOPHIE Carty - Last Filed: 04/05/22 21:21> Total Critical Care Time: 40 <SOPHIE Carty - Last Filed: 04/05/22 21:21> Attestation: I have personally provided critical care time exclusive of time spent on separately billable procedures. Time includes review of lab data, radiology results, discussion with consultants, and monitoring for potential decompensation. Intervention performed as documented. <SOPHIE Carty - Last Filed: 04/05/22 21:21> Discharge Plan Discharge Clinical Impression: Seizure, Alcohol abuse, Pancolitis, UTI (urinary tract infection) <SOPHIE Carty - Last Filed: 04/05/22 21:21> Patient Disposition: Admitted As Inpatient <SOPHIE Carty - Last Filed: 04/05/22 21:21>
[2022-04-05 13:37] VITALS: BP 123/89; BP 124/88; PULSE 80; PULSE 88; RESP 18; O2SAT 99; BMI 19.8
--- NOTE | 2022-04-05 13:42 | ECG_ITS ---
Test Reason : SEIZURE Blood Pressure : / mmHG Vent. Rate : 070 BPM Atrial Rate : 070 BPM P-R Int : 160 ms QRS Dur : 090 ms QT Int : 448 ms P-R-T Axes : 061 070 055 degrees QTc Int : 483 ms Normal sinus rhythm Prolonged QT Abnormal ECG No previous ECGs available Referred By: Jovita Sibley Electronically Signed By:ABILIO BRAN
[2022-04-05 14:00] VITALS: BP 113/83; PULSE 92; O2SAT 100
[2022-04-05] MEDS: LORazepam 1 MG TABLET PO (14:02)
[2022-04-05] MEDS: ondansetron HCL 4 MG/2 ML VIAL IVPUSH (14:02)
[2022-04-05] MEDS: 0.9 % Sodium Chloride 1,000 ML 999 ML IV ×3 (14:07→22:03)
[2022-04-05 14:56] LABS: Basophils Percent Auto 0.8 % (0-2); Eosinophils Absolute Auto 0.1 X10*3/uL (0.0-0.4); Eosinophils Percent Auto 1.5 % (0-4); Hematocrit 32.8 % (37.0-47.0); Hemoglobin 11.1 g/dl (12.0-16.0); Imm Gran Abs Auto 0.01 X10*3/uL (0.00-0.03); Imm Gran Pct Auto 0.3 % (0.0-0.4); Lymphocytes Absolute Auto 1.4 X10*3/uL (1.2-4.9); Lymphocytes Percent Auto 34.5 % (20-40); MANUAL DIFF FLAG NO; Mean Corpuscular HGB Conc 33.8 g/dl (31.0-35.0); Mean Corpuscular Volume 100.6 fL (80.0-98.0); Mean Platelet Volume 9.8 fL (9.4-12.3); Monocytes Absolute Auto 0.4 X10*3/uL (0.1-1.2); Monocytes Percent Auto 9.5 % (2-11); Neutrophils Absolute Auto 2.1 x10*3/uL (2.0-8.3); Neutrophils Percent Auto 53.4 % (45-73); Platelet Count 119 X10*3/uL (160-400); Red Blood Count 3.26 X10*6/uL (4.20-5.50); Red Cell Distribution Width 12.7 % (11.0-16.0)
[2022-04-05 15:11] LABS: COVID-19 Test Negative (Negative)
[2022-04-05 15:15] LABS: Acetaminophen LAB < 1 mcg/mL (<30); Alanine Aminotransferase 47 U/L (0-31); Albumin Level 3.6 g/dL (3.5-5.0); Alkaline Phosphatase 50 U/L (39-117); Anion Gap 21 (12-20); Aspartate Amino Transferase 123 U/L (5-31); Bilirubin Direct 0.5 mg/dL (0.0-0.5); Bilirubin Total 0.9 mg/dL (0.0-1.0); Blood Urea Nitrogen 9 mg/dL (9-16); Calcium 7.8 mg/dL (8.4-10.2); Carbon Dioxide 20 mmol/L (22-29); Chloride 105 mmol/L (96-108); Estimated Glomerular Filt Rate > 60; Ethanol 304 mg/dL; Glucose Random 92 mg/dL (60-115); Lipase 29 U/L (8-78); Magnesium 1.9 mg/dL (1.6-2.6); Potassium 3.6 mmol/L (3.3-5.1); Salicylate < 5.0 mg/dL (15-30); Sodium 142 mmol/L (135-145); Total Protein 6.5 g/dL (6.5-8.0)
[2022-04-05 15:19] LABS: Troponin-I High Sensitivity < 3.5 ng/L (<3.5-17.0)
--- NOTE | 2022-04-05 15:30 | PC.NURSE ---
pt c/o lightheadedness/dizziness/non-productive cough. she also reports that she passed out but no one was around when it happened, no memory of details surrounding her syncopal episode.
[2022-04-05 16:06] LABS: HCG Quantitative < 2 mIU/mL
[2022-04-05 16:53] LABS: Reflex Lactate? Lactic Acid Added
[2022-04-05] MEDS: iohexoL 350 MG/ML 100 ML INFUS..BTL IV (17:14)
[2022-04-05 18:19] LABS: Amylase 43 U/L (28-100)
[2022-04-05 19:23] LABS: Lactic Acid 4.2 mmol/L (0.5-2.0)
--- NOTE | 2022-04-05 19:29 | P.CONGS_ITS ---
History of Present Illness Consult details Consult date: 04/05/22 Reason for consult: other (Seizure and abdominal discomfort) Narrative: Patient is a 26-year-old woman with a history of heavy alcohol use who experienced a seizure today and fell. She had some vague abdominal complaints but to me, denies any abdominal pain, nausea or vomiting. Explained that bec ause of her symptoms, CT of her abdomen and pelvis was performed and concern regarding a focus of air in her bladder and possible colitis resulted in my consultation. The patient endorses some confusion and postictal symptoms but denies any chest pain, abdominal pain, difficulty breathing or shortness of breath. The patient's significant other is at the bedside. The patient denies any frankly watery diarrhea but notes frequent bowel movements. Given the focus of air in the bladder that could be related to intercourse, I asked if there had been any intercourse in the past 24 hours, but this was denied. Review of Systems Review of Systems: Yes all other systems are reviewed and are negative Constitutional: Constitutional: Reports as per [facility] Social History Social History Advance Directives: No Advance Directives Information Provided: No Meds Allergies Allergy/AdvReac Type Severity Reaction Status Date / Time No Known Allergies Allergy Verified 04/05/22 13:37 Physical Exam Vital Signs: Vital Signs: Last Vital Signs Pulse 92 04/05/22 14:00 Resp 18 04/05/22 13:37 BP 113/83 04/05/22 14:00 Pulse Ox 100 04/05/22 14:00 O2 Del Method 04/05/22 14:00 BMI result Body Mass Index 19.8 The patient is non-toxic & in good spirits NC/AT, PERRLA, EOMI Mood, affect & judgment all appear appropriate Sclera anicteric conjunctiva pink and moist Heart is regular, normal S1-S2 no rubs or murmurs Lungs are clear and equal anteriorly with no audible wheezing, rubs or dullness to percussion Abdomen is overweight with no demonstrable hernias. No peritoneal irritation to percussion or tenderness is present, vague upper abdominal discomfort is noted No HSM, rebound, rigidity, guarding, masses or bruits are present. Rectal exam is deferred Skin has good turgor and is free of rashes Extremities free of cyanosis clubbing edema Results Labs Result diagrams: 04/05/22 14:50 04/05/22 14:50 Labs: Abnormal lab results 04/05/22 04/05/22 04/05/22 Range/Units 14:50 14:50 14:50 WBC 4.0 L (4.8-10.8) X10*3/uL RBC 3.26 L (4.20-5.50) X10*6/uL Hgb 11.1 L (12.0-16.0) g/dl Hct 32.8 L (37.0-47.0) % MCV 100.6 H (80.0-98.0) fL MCH 34.0 H (27.0-33.0) pg Plt Count 119 L (160-400) X10*3/uL Carbon Dioxide 20 L (22-29) mmol/L Anion Gap 21 H (12-20) Lactic Acid 4.2 H* (0.5-2.0) mmol/L Calcium 7.8 L (8.4-10.2) mg/dL AST 123 H (5-31) U/L ALT 47 H (0-31) U/L Salicylates < 5.0 L (15-30) mg/dL Ethyl Alcohol 304 H* mg/dL Short CBC 04/05/22 Range/Units 14:50 WBC 4.0 L (4.8-10.8) X10*3/uL Hgb 11.1 L (12.0-16.0) g/dl Hct 32.8 L (37.0-47.0) % Plt Count 119 L (160-400) X10*3/uL BMP 04/05/22 14:50 Sodium 142 Potassium 3.6 Chloride 105 Carbon Dioxide 20 L BUN 9 Creatinine 0.69 Calcium 7.8 L Liver Function 04/05/22 Range/Units 14:50 Total Bilirubin 0.9 (0.0-1.0) mg/dL Direct Bilirubin 0.5 (0.0-0.5) mg/dL AST 123 H (5-31) U/L ALT 47 H (0-31) U/L Alkaline Phosphatase 50 (39-117) U/L Albumin 3.6 (3.5-5.0) g/dL All other labs normal. Imaging Abdomen CT scan report/results: report reviewed and image reviewed CT scan - pelvis: report reviewed and image reviewed Assessment and Plan (1) Abnormal CT of the abdomen: Status: Acute (2) Seizure: Status: Acute (3) Alcohol abuse: Status: Acute (4) Pancytopenia: Status: Acute Plan Discussed with ER staff. There is no acute surgical pathology. I cannot account for the focus of air in the bladder and would recommend checking a UA. Given the patient's GI complaints, outpatient GI consultation and possible colonoscopy to assess for inflammatory bowel disease may be in order. Seizure, alcoholism and pancytopenia her all deferred to the medical team. Please call me with new surgical issues. Procedures Date of Service Date of Service: 04/05/22
[2022-04-05 19:36] VITALS: BP 106/71; PULSE 73
[2022-04-05 19:37] VITALS: BP 110/65; BP 112/75; PULSE 81; PULSE 87
[2022-04-05 19:38] VITALS: BP 112/75; PULSE 87; RESP 16; TEMP 36.6; O2SAT 98
[2022-04-05 19:43] LABS: Appearance Urine CLEAR; Color Urine YELLOW; Glucose Urine UA NEG (NEG); Leukocyte Esterase Urine NEG (NEG); Nitrite Urine POS (NEG); UACC Culture Trigger YES; Urine Blood NEG (NEG); Urine Ketones NEG (NEG); Urine Protein NEG (NEG-TRACE)
[2022-04-05 19:55] LABS: Amphetamine Screen Urine Not Detected (Not Detect); Barbiturates, Urine Not Detected (Not Detect); Benzodiazepines Screen Urine Not Detected (Not Detect); Cannabinoid Screen Urine POSITIVE (Not Detect); Cocaine Screen Urine Not Detected (Not Detect); Fentanyl, urine Not Detected (Not Detect); Opiate Screen Urine Not Detected (Not Detect); Phencyclidine Screen Urine Not Detected (Not Detect); UPreg QC Valid YES; Urine Pregnancy NEGATIVE (NEGATIVE)
[2022-04-05 19:59] LABS: Bacteria Urine 4+ /LPF; Hyaline Casts Urine 0-2 /LPF; Mucus Urine TRACE /LPF; RBC Urine 0-2 /HPF (0); Squamous Epithelial Cell Urine TRACE /LPF
[2022-04-05 20:05] LABS: ~Lactic Acid-LAB USE ONLY 3.4 mmol/L (0.5-2.0)
[2022-04-05 21:38] LABS: Reflex Lactate? 2 Y
[2022-04-05] MEDS: lamoTRIgine 100 MG TABLET 300 MG PO (22:01)
[2022-04-05 23:19] VITALS: BP 107/73; PULSE 63; RESP 16; TEMP 36.9; O2SAT 100
[2022-04-05 23:45] LABS: ~Lactic Acid-LAB USE ONLY 3.7 mmol/L (0.5-2.0)
[2022-04-06] MEDS: metroNIDAZOLE/NS 500 MG/100 ML PIGGYBACK 100 MG IV (01:10)
--- NOTE | 2022-04-06 02:01 | PM.IMHP ---
History of Present Illness Date of Service: 04/06/22 Chief Complaint: seizure episode 26-year-old female with past medical history of epilepsy, as well as alcohol abuse presents to the hospital with complaints of seizure episode. Patient reports compliance with her lamotrigine and reports that her last drink was 2 days prior to presentation, this seizure episode was witnessed and patient reports that she was postictal but she knew what happened to her. She denies any head trauma, but right now complaining of periorbital swelling with no hives, no rash, no itching, no difficulty breathing or swelling in her mouth or lips. Patient reports that she is currently withdrawing from alcohol, she is feeling anxious, tremulous. Her CT abdomen showed possible IBD, when asked about symptoms patient denied any abdominal pain, no recent diarrhea, no nausea or vomiting, no fever or chills. She does have urinary frequency. Patient denies any headache, no chest pain, no shortness of breath, no palpitations, no lower extremity edema. On arrival to the ED patient hemodynamically stable with no significant abnormal vitals Labs are significant for WBC count of 4.0, hemoglobin of 10.2, hematocrit of. A, lactic acid of 4.2, UA positive for nitrites and WBC and alcohol level of 304 Imaging including chest x-ray negative, head CT shows no intracranial hemorrhage or other acute intracranial abnormality, cervical spine shows no subluxation or acute cervical spine fracture CT abdomen shows pancolonic wall thickening with prominence of the mesenteric vessels and stratified by lamina or enhancement with suspected wall thickening involving the terminal ileum raising the suspicion for inflammatory bowel disease. Patient also has evidence of partial small-bowel obstruction. Patient started on phenobarb, IV antibiotics and will be admitted for further management Review of Systems Review of Systems: Yes all other systems are reviewed and are negative [facility] Medical History (Updated 04/06/22 @ 07:29 by Ammon German MD) Alcohol abuse History of epilepsy Family History (Updated 04/06/22 @ 07:26 by Ammon German MD) Other No family history of coronary artery disease Surgical History (Updated 04/06/22 @ 07:26 by Ammon German MD) No pertinent past surgical history Social History (Updated 04/06/22 @ 07:27 by Ammon German MD) Alcohol intake: current Patient Tobacco Use Status: Current everyday Tobacco user Tobacco use type: Cigarette Use of substances other than those prescribed or required for medical reasons: No Advance Directives: No Advance Directives Information Provided: No Meds Allergies Allergy/AdvReac Type Severity Reaction Status Date / Time No Known Allergies Allergy Verified 04/05/22 13:37 Active Medications: Current Medications Acetaminophen (Acetaminophen 325 Mg Tablet) 650 mg PO Q6H PRN PRN Reason: Pain, Mild (Pain Scale 1-3) Docusate Sodium (Docusate Sodium 100 Mg Capsule) 100 mg PO DAILY PRN PRN Reason: Constipation Enoxaparin Sodium (Enoxaparin Sodium 40 Mg/0.4 Ml Syringe) 40 mg SUBCUT Q24H CHRIS Levofloxacin (Levaquin) 750 mg in 150 mls @ 100 mls/hr IV ONCE ONE Stop: 04/06/22 02:08 Lactated Ringer's (Lr) 1,000 mls @ 100 mls/hr IVCONT .Q10H [facility]RIS Ondansetron HCl (Ondansetron Hcl 4 Mg/2 Ml Vial) 4 mg IVPUSH Q8H PRN PRN Reason: Nausea and Vomiting Oxycodone HCl (Oxycodone Hcl Immed Release 5 Mg Tablet) 5 mg PO Q6H PRN PRN Reason: Pain, Severe (Pain Scale 7-10) Pharmacy Consult (Consult Rx Perform Med Rec) 1 each MISCELLANE ONCE PRN PRN Reason: Consult order Sodium Chloride (0.9 % Sodium Chloride Flush 3 Ml Syringe) 3 ml IVFLUSH QSHIFT [facility] Home Medications Medication Instructions Recorded Confirmed Last Taken Type folic acid 1 mg tablet 1 tab PO DAILY 04/06/22 04/06/22 Unknown History lamotrigine 300 mg tablet,extended 1 tab PO DAILY 04/06/22 04/06/22 Unknown History release 24 hr norethindrone 1 mg-ethinyl 1 tab PO DAILY 04/06/22 04/06/22 Unknown History estradiol 35 mcg (21) tablet (Nortrel) Physical Exam Vital Signs and Narrative: Vital Signs: Last Vital Signs Temp 98.5 F 04/05/22 23:19 Pulse 63 04/05/22 23:19 Resp 16 04/05/22 23:19 BP 107/73 04/05/22 23:19 Pulse Ox 100 04/05/22 23:19 O2 Del Method 08/13/22 23:19 BMI result Body Mass Index 19.8 Const: General: cooperative and no acute distress Orientation/consciousness: patient oriented x3 Eyes: General: appearance normal, both eyes and all related structures Resp: Effort & Inspection: normal respiratory effort Auscultation: clear to auscultation bilaterally Cardio: Rate: regular rate Rhythm: regular rhythm GI: Other: Mildly tender in the lower quadrant with no rebound or guarding Palpation (GI): Soft to palpation Auscultation: normal bowel sounds Skin: General skin exam: no rashes or lesions noted Neuro: General: patient oriented x3 Cognition (Neuro): normal cognition Extrem: General: Yes normal to inspection and Yes no pedal edema Results Labs CBC and Chem 7: 04/06/22 06:44 04/05/22 14:50 Labs: Laboratory Results - last 24 hr 04/05/22 04/05/22 04/05/22 14:50 14:50 14:50 MCV 100.6 H MCH 34.0 H MCHC 33.8 RDW 12.7 Plt Count 119 L MPV 9.8 Immature Gran % (Auto) 0.3 Neut % (Auto) 53.4 Lymph % (Auto) 34.5 Cook % (Auto) 9.5 Eos % (Auto) 1.5 Baso % (Auto) 0.8 Lymph # (Auto) 1.4 Cook # (Auto) 0.4 Eos # (Auto) 0.1 Baso # (Auto) 0.0 Abs Immat Gran (auto) 0.01 Absolute Neuts (auto) 2.1 Absolute Nucleated RBC 0.000 Nucleated RBC % (auto) 0.0 Anion Gap 21 H Estim Creat Clear Calc 113.0 Estimated GFR > 60 Random Glucose 92 Lactic Acid 4.2 H* Lactic Acid F/U @ 2Hr Lactic Acid F/U @ 4Hr Calcium 7.8 L Magnesium 1.9 Total Bilirubin 0.9 Direct Bilirubin 0.5 AST 123 H ALT 47 H Alkaline Phosphatase 50 Total Protein 6.5 Albumin 3.6 Amylase 43 Lipase 29 Beta HCG, Quant < 2 Urine Color Urine Appearance Urine pH Ur Specific [place] Urine Protein Urine Glucose (UA) Urine Ketones Urine Blood Urine Nitrite Ur Leukocyte Esterase Urine RBC Urine WBC Ur Squamous Epith Cells Urine Bacteria Hyaline Casts Urine Mucus Urine Test Salicylates < 5.0 L Urine Opiates Screen Urine Fentanyl Screen Acetaminophen < 1 Ur Barbiturates Screen Ur Phencyclidine Scrn Ur Amphetamines Screen U Benzodiazepines Scrn Urine Cocaine Screen U Marijuana (THC) Screen Ethyl Alcohol 304 H* COVID-19 ([facility]NN[facility]) COVID-19 Clin Com 04/05/22 04/05/22 04/05/22 14:50 19:33 19:33 MCV MCH MCHC RDW Plt Count MPV Immature Gran % (Auto) Neut % (Auto) Lymph % (Auto) Cook % (Auto) Eos % (Auto) Baso % (Auto) Lymph # (Auto) Cook # (Auto) Eos # (Auto) Baso # (Auto) Abs Immat Gran (auto) Absolute Neuts (auto) Absolute Nucleated RBC Nucleated RBC % (auto) Anion Gap Estim Creat Clear Calc Estimated GFR Random Glucose Lactic Acid Lactic Acid F/U @ 2Hr Lactic Acid F/U @ 4Hr Calcium Magnesium Total Bilirubin Direct Bilirubin AST ALT Alkaline Phosphatase Total Protein Albumin Amylase Lipase Beta HCG, Quant Urine Color YELLOW Urine Appearance CLEAR Urine pH 5.0 Ur Specific [place] 1.010 Urine Protein NEG Urine Glucose (UA) NEG Urine Ketones NEG Urine Blood NEG Urine Nitrite POS H Ur Leukocyte Esterase NEG Urine RBC 0-2 Urine WBC 5-9 H Ur Squamous Epith Cells TRACE Urine Bacteria 4+ Hyaline Casts 0-2 Urine Mucus TRACE Urine Test NEGATIVE Salicylates Urine Opiates Screen Urine Fentanyl Screen Acetaminophen Ur Barbiturates Screen Ur Phencyclidine Scrn Ur Amphetamines Screen U Benzodiazepines Scrn Urine Cocaine Screen U Marijuana (THC) Screen Ethyl Alcohol COVID-19 ([facility]NNY) Negative COVID-19 Clin Com See Note 04/05/22 04/05/22 04/05/22 19:33 19:35 23:17 MCV MCH MCHC RDW Plt Count MPV Immature Gran % (Auto) Neut % (Auto) Lymph % (Auto) Cook % (Auto) Eos % (Auto) Baso % (Auto) Lymph # (Auto) Cook # (Auto) Eos # (Auto) Baso # (Auto) Abs Immat Gran (auto) Absolute Neuts (auto) Absolute Nucleated RBC Nucleated RBC % (auto) Anion Gap Estim Creat Clear Calc Estimated GFR Random Glucose Lactic Acid Lactic Acid F/U @ 2Hr 3.4 H* Lactic Acid F/U @ 4Hr 3.7 H* Calcium Magnesium Total Bilirubin Direct Bilirubin AST ALT Alkaline Phosphatase Total Protein Albumin Amylase Lipase Beta HCG, Quant Urine Color Urine Appearance Urine pH Ur Specific [place] Urine Protein Urine Glucose (UA) Urine Ketones Urine Blood Urine Nitrite Ur Leukocyte Esterase Urine RBC Urine WBC Ur Squamous Epith Cells Urine Bacteria Hyaline Casts Urine Mucus Urine Test Salicylates Urine Opiates Screen Not Detected Urine Fentanyl Screen Not Detected Acetaminophen Ur Barbiturates Screen Not Detected Ur Phencyclidine Scrn Not Detected Ur Amphetamines Screen Not Detected U Benzodiazepines Scrn Not Detected Urine Cocaine Screen Not Detected U Marijuana (THC) Screen POSITIVE H Ethyl Alcohol COVID-19 ([facility]NNY) COVID-19 Clin Com Imaging Radiologist's Impressions: Impressions Cervical Spine CT 04/05/22 17:16 IMPRESSION: 1. No intracranial hemorrhage or other acute intracranial abnormality. 2. No traumatic subluxation or acute cervical spine fracture. Head CT 04/05/22 17:16 IMPRESSION: 1. No intracranial hemorrhage or other acute intracranial abnormality. 2. No traumatic subluxation or acute cervical spine fracture. Abdomen/Pelvis CT 04/05/22 17:17 IMPRESSION: Pancolonic wall thickening with prominence of the mesenteric vessels and stratified bilaminar enhancement with suspected wall thickening involving the terminal ileum, raising the suspicion for inflammatory bowel disease, although infectious enterocolitis could be considered. There are mildly dilated loops of small bowel measuring up to 3.1 cm which transitions in the left pelvis with some moderate wall thickening at the transition point raising the suspicion for a partial small bowel obstruction, possibly secondary to underlying stricture. Foci of gas are noted within the lumen of the bladder. Recommend correlation with any recent instrumentation. If findings are not iatrogenic, fistula or infection would be another differential considerations. Hypoattenuating hepatic parenchyma suggesting hepatic steatosis. Chest X-Ray 04/05/22 18:00 IMPRESSION: No acute pulmonary process. Assessment and Plan (1) Seizure: Status: Acute (2) Pancolitis: Status: Acute (3) UTI (urinary tract infection): Status: Acute (4) Abnormal CT of the abdomen: Status: Acute (5) Alcohol abuse: Status: Acute (6) Alcohol withdrawal: Status: Acute (7) Partial small bowel obstruction: Status: Acute Plan 26-year-old female with past medical history of alcohol abuse and epilepsy presents to the hospital with complaints seizure episode found to have multiple other abnormalities # seizure episode - possibly secondary to epilepsy versus alcohol withdrawal seizure - alcohol level is positive but patient reports that her last drink was 2 days prior to presentation - she reports compliance with her antiseizure medications - at this time will continue her lamotrigine - wheelchair for alcohol withdrawals with phenobarb # abnormal CT of the abdomen - patient has evidence of pancolitis as well as partial small-bowel obstruction - patient has mild tenderness on palpation but no rebound or guarding - denies any history of IBD, no diarrhea, no hematochezia - at this time will consult GI - given 1 dose of Solu-Medrol for possible IBD - monitor symptoms # partial small-bowel obstruction - as seen on CT of the abdomen - patient does not have any significant abdominal pain - no guarding or rebound - at this time will consult General surgery - NPO # UTI - positive UA - symptomatic - will treat with IV antibiotics Follow cultures # alcohol abuse with withdrawal - daily drinker - will treat with IM NPO phenobarb - thiamine and folic acid supplement - monitor for seizures DVT prophylaxis: Lovenox Given the multiple complicated findings as well as withdrawal a need for phenobarb protocol patient will require minimum 2 night hospital stay for further management and evaluation Quality Stroke Does the patient have a stroke diagnosis?: No VTE Prior VTE?: No VTE Risk Level:: Medical - moderate - high VTE Device Contraindication: Treatment Not Indicated VTE Drug Contraindication: N/A - Med Ordered
[2022-04-06] MEDS: levoFLOXacin/D5W 750 MG/150 ML PIGGYBACK 100 MG IV (02:34)
--- NOTE | 2022-04-06 03:50 | PC.NURSE ---
Ceftriaxone that is ordered to be administered at 0215 will be held per request Maria E SCHAEFER (pt immediately prior received Flagyl and Levaquin IV)
[2022-04-06 04:00] VITALS: BP 102/61; PULSE 78; RESP 16; TEMP 36.9; O2SAT 99
[2022-04-06] MEDS: Lactated Ringers 1,000 ML 100 ML IVCONT ×3 (06:02→21:58)
[2022-04-06] MEDS: Enoxaparin Sodium 40 MG/0.4 ML SYRINGE SUBCUT (06:46)
[2022-04-06 06:49] LABS: MANUAL DIFF FLAG NO
[2022-04-06 06:54] LABS: Basophils Percent Auto 0.7 % (0-2); Eosinophils Absolute Auto 0.1 X10*3/uL (0.0-0.4); Eosinophils Percent Auto 3.4 % (0-4); Hemoglobin 10.2 g/dl (12.0-16.0); Imm Gran Abs Auto 0.02 X10*3/uL (0.00-0.03); Imm Gran Pct Auto 0.5 % (0.0-0.4); Lymphocytes Absolute Auto 1.5 X10*3/uL (1.2-4.9); Lymphocytes Percent Auto 35.7 % (20-40); Mean Corpuscular Hemoglobin 33.8 pg (27.0-33.0); Mean Corpuscular Volume 99.3 fL (80.0-98.0); Mean Platelet Volume 10.1 fL (9.4-12.3); Monocytes Absolute Auto 0.4 X10*3/uL (0.1-1.2); Monocytes Percent Auto 10.4 % (2-11); Neutrophils Percent Auto 49.3 % (45-73); Platelet Count 100 X10*3/uL (160-400); Red Blood Count 3.02 X10*6/uL (4.20-5.50); Red Cell Distribution Width 12.5 % (11.0-16.0); White Blood Count 4.1 X10*3/uL (4.8-10.8)
[2022-04-06] MEDS: ondansetron HCL 4 MG/2 ML VIAL IVPUSH (07:15)
[2022-04-06] MEDS: PHENobarbitaL sodium 130 MG/ML IM ONCE 235.3 MG IM (07:19)
[2022-04-06] MEDS: 0.9 % Sodium Chloride Flush 3 ML SYRINGE IVFLUSH (07:20)
[2022-04-06 07:44] LABS: Anion Gap 21 (12-20); Blood Urea Nitrogen 5 mg/dL (9-16); Calcium 6.8 mg/dL (8.4-10.2); Carbon Dioxide 16 mmol/L (22-29); Chloride 106 mmol/L (96-108); Creatinine Clr Calc Pharmacy 119.9; Estimated Glomerular Filt Rate > 60; Glucose Random 79 mg/dL (60-115); Potassium 3.8 mmol/L (3.3-5.1); Sodium 139 mmol/L (135-145)
[2022-04-06 08:04] LABS: C Reactive Protein < 0.02 mg/dL (< or = 0.50)
[2022-04-06 08:26] VITALS: BP 133/75; PULSE 84; RESP 18; O2SAT 95
[2022-04-06 08:52] LABS: Erythrocyte Sedimentation Rate 2 MM/HR (0-20)
[2022-04-06 09:18] LABS: Fibrinogen 243 MG/DL (259-690); INTERNATIONAL NORM RATIO 1.1 (0.9-1.1); Prothrombin Time 12.8 SEC (10.0-13.1)
[2022-04-06 09:20] LABS: Partial Thromboplastin Time 34.6 SEC (26.0-36.4)
[2022-04-06 09:25] VITALS: BP 126/78; PULSE 101; RESP 18; O2SAT 98
[2022-04-06 09:44] LABS: Alanine Aminotransferase 42 U/L (0-31); Albumin Level 3.3 g/dL (3.5-5.0); Alkaline Phosphatase 47 U/L (39-117); Aspartate Amino Transferase 123 U/L (5-31); Bilirubin Direct 0.7 mg/dL (0.0-0.5); Bilirubin Total 1.4 mg/dL (0.0-1.0); Total Protein 6.1 g/dL (6.5-8.0)
--- NOTE | 2022-04-06 10:31 | MHC.CM.PN ---
Met with pt and significant other to review d/c plan: pt resides w/significant other, works, no services or needs identified: Pt states she forgot the name of her PCP but will contact CM when she recalls it. BF will transport home: HCP declined: COVID vax x2 w/recent infection 3 weeks ago. No CM needs identified at this time.
[2022-04-06] MEDS: PHENobarbitaL sodium 130 MG/ML VIAL IM Q3Hx2 176.8 MG IM ×2 (10:39→14:39)
[2022-04-06] MEDS: Thiamine HCL 100 MG TABLET PO (10:40)
[2022-04-06] MEDS: Folic Acid 1 MG TABLET PO (10:40)
[2022-04-06] MEDS: Acetaminophen 325 MG TABLET 650 MG PO (10:42)
[2022-04-06 10:48] LABS: Leukocytes Stool Qualitative NEGATIVE (NEGATIVE)
[2022-04-06 11:55] LABS: Campylobacter Not Detected (Not Detect.); Plesiomonas shigelloides Not Detected (Not Detect.)
[2022-04-06 11:56] LABS: Adenovirus F 40/41 Not Detected (Not Detect.); Astrovirus Not Detected (Not Detect.); Cryptosporidium Not Detected (Not Detect.); Cyclospora cayetanensis Not Detected (Not Detect.); E. coli EAEC Not Detected (Not Detect.); E. coli EPEC Not Detected (Not Detect.); E. coli ETEC Not Detected (Not Detect.); E. coli STEC Not Detected (Not Detect.); Entamoeba histolytica Not Detected (Not Detect.); Giardia lamblia Not Detected (Not Detect.); Norovirus GI/GII Not Detected (Not Detect.); Rotavirus A Not Detected (Not Detect.); Salmonella Not Detected (Not Detect.); Sapovirus Not Detected (Not Detect.); Shigella sp./EIEC Not Detected (Not Detect.); Vibrio Not Detected (Not Detect.); Vibrio Cholerae Not Detected (Not Detect.); Yersinia enterocolitica Not Detected (Not Detect.)
--- NOTE | 2022-04-06 13:53 | P.CNGI_ITS ---
History of Present Illness Data of Consult Service Date: 04/06/22 Requesting physician: Ammon German Primary Care Provider: Unknown Physician HPI Reason for consult: abn imaging 26-year-old female with past medical history of epilepsy, as well as alcohol abuse who I am seeing for assessment for abn imaging. patient was at work when she had seizure earlier today. She does take lamotrigin e along with daily nips of vodka for last months and admits to having an issue with alcohol consumption on and off for last few years. She feels back to baseline at time of me seeing her. As part of evaluation she had CT with pancolonic thickening, prominent mesenteric vessels and enhancement of TI ?IBD, partial SBO Patient herself says prior to this attack she felt totally fine, no abdominal p ain, v occasional loose stools, but usu formed without blood or mucous. No nausea, no vomiting, good appetite. no chest pain, no shortness of breath, no palpitations, no lower extremity edema. She does have urinary frequency and UA was pos for nitrites Review of Systems Review of Systems: Constitutional:No Fever, No Chills, No Fatigue, No Malaise ENT/Mouth: No Ear Pain, No Nasal Congestion, No sore throat, No Rhinorrhea, No Swallowing Difficulty, +tongue biting Eyes: No Eye Pain, No Swelling, No Redness, No Vision Changes Cardiovascular: No Chest Pain, +o SOB, No Dyspnea on Exertion, No Orthopnea, No Edema, No Palpitations Respiratory: No Cough, No Sputum, No Dyspnea Gastrointestinal: No Nausea, No Vomiting, No Diarrhea, No Constipation, No Abdominal pain Genitourinary: No irregular bleeding, No Dysuria, No Urinary Frequency, No Hematuria, No Urinary Incontinence/retention, No Urgency, No Flank Pain, No Urinary Flow Changes Musculoskeletal: + joint pain, No Myalgias, No Joint Swelling Skin: No Skin Lesions, No rash Neuro: No Weakness, No Numbness, No Paresthesias, + Loss of Consciousness, No Dizziness, + Headache PMFSH Past Medical History Medical History (Updated 04/06/22 @ 07:29 by Ammon German MD) Alcohol abuse History of epilepsy Family History Family History (Updated 04/06/22 @ 07:26 by Ammon German MD) Other No family history of coronary artery disease Surgical History Surgical History (Updated 04/06/22 @ 07:26 by Ammon German MD) No pertinent past surgical history Social History Social History (Updated 04/06/22 @ 07:27 by Ammon German MD) Alcohol intake: current Patient Tobacco Use Status: Current everyday Tobacco user Tobacco use type: Cigarette Use of substances other than those prescribed or required for medical reasons: No Advance Directives: No Advance Directives Information Provided: No Current occupational status: employed Meds Allergies Allergy/AdvReac Type Severity Reaction Status Date / Time No Known Allergies Allergy Verified 04/05/22 13:37 Active Medications: Current Medications Acetaminophen (Acetaminophen 325 Mg Tablet) 650 mg PO Q6H PRN PRN Reason: Pain, Mild (Pain Scale 1-3) Last Admin: 04/06/22 10:42 Dose: 650 mg Diphenhydramine HCl (Diphenhydramine Hcl 50 Mg/Ml Vial) 25 mg IVPUSH Q6H PRN PRN Reason: eye swelling Docusate Sodium (Docusate Sodium 100 Mg Capsule) 100 mg PO DAILY PRN PRN Reason: Constipation Enoxaparin Sodium (Enoxaparin Sodium 40 Mg/0.4 Ml Syringe) 40 mg SUBCUT Q24H [facility] Last Admin: 04/06/22 06:46 Dose: 40 mg Folic Acid (Folic Acid 1 Mg Tablet) 1 mg PO DAILY [facility] Last Admin: 04/06/22 10:40 Dose: 1 mg Lactated Ringer's (Lr) 1,000 mls @ 100 mls/hr IVCONT .Q10H [facility] Last Admin: 04/06/22 11:05 Dose: 100 mls/hr Ceftriaxone Sodium 1 gm/ (Sodium Chloride) 50 mls @ 100 mls/hr IV Q24H [facility] Last Admin: 04/06/22 03:49 Dose: Not Given Non-Formulary Lamotrigine 300 Mg Er 24hr 1 tab PO DAILY [facility] Last Admin: 04/06/22 10:40 Dose: 1 tab Ondansetron HCl (Ondansetron Hcl 4 Mg/2 Ml Vial) 4 mg IVPUSH Q8H PRN PRN Reason: Nausea and Vomiting Last Admin: 04/06/22 07:15 Dose: 4 mg Oxycodone HCl (Oxycodone Hcl Immed Release 5 Mg Tablet) 5 mg PO Q6H PRN PRN Reason: Pain, Severe (Pain Scale 7-10) Pharmacy Consult (Consult Rx Perform Med Rec) 1 each MISCELLANE ONCE PRN PRN Reason: Consult order Pharmacy Consult (Consult Rx Etoh Phenob Im/Po) 1 each MISCELLANE ONCE PRN; Pro tocol PRN Reason: Consult order Phenobarbital (Phenobarbital 15 Mg Tablet) 45 mg PO BID [facility]; Protocol Stop: 04/08/22 09:01 Phenobarbital (Phenobarbital 30 Mg Tablet) 30 mg PO BID [facility]; Protocol Stop: 04/10/22 09:01 Phenobarbital (Phenobarbital 30 Mg Tablet) 30 mg PO DAILY [facility]; Protocol Stop: 04/12/22 09:01 Sodium Chloride (0.9 % Sodium Chloride Flush 3 Ml Syringe) 3 ml IVFLUSH QSHIFT [facility] Last Admin: 04/06/22 07:20 Dose: 3 ml Thiamine HCl (Thiamine Hcl 100 Mg Tablet) 100 mg PO DAILY [facility] Last Admin: 04/06/22 10:40 Dose: 100 mg Home Medications Medication Instructions Recorded Confirmed Last Taken Type folic acid 1 mg tablet 1 tab PO DAILY 04/06/22 04/06/22 Unknown History lamotrigine 300 mg tablet,extended 1 tab PO DAILY 04/06/22 04/06/22 Unknown History release 24 hr norethindrone 1 mg-ethinyl 1 tab PO DAILY 04/06/22 04/06/22 Unknown History estradiol 35 mcg (21) tablet (Nortrel) Physical Exam Vital Signs: Vital Signs: Last Vital Signs Temp 98.5 F 04/06/22 04:00 Pulse 101 H 04/06/22 09:25 Resp 18 04/06/22 09:25 BP 126/78 04/06/22 09:25 Pulse Ox 98 04/06/22 09:25 O2 Del Method 04/06/22 09:25 BMI result Body Mass Index 19.8 Const: Other: Anxious, tearful General: cooperative, healthy appearing, no acute distress and alert Orientation/consciousness: patient oriented x3 Limitations: no l imitations HEENT: Head: Yes normal to inspection, Yes atraumatic, No Rahman's sign and No raccoon eyes Ears: hearing grossly normal bilaterally General nose exam: Normal external nose present Face and sinus: Yes normal facial exam Mouth: Normal oral and palatal mucosa present Throat: Yes posterior oropharynx n ormal and Yes tonsils normal Eyes: General: appearance normal, both eyes and all related structures Pupils: Equal, round and reactive pupils present EOM: EOMs intact bilaterally Neck: Other: C-collar in place. Midline cervical spinous tenderness noted Neck: Yes normal visual inspection, Yes no meningeal signs and Yes supple Resp: Effort & Inspection: normal respiratory effort and no respiratory distress Auscultation: clear to auscultation bilaterally Cardio: Rate: regular rate Rhythm: regular rhythm Heart sounds: S1 normal heart sound present and S2 normal heart sound present GI: Other: Mildly tender in the lower quadrant with no rebound or guarding Inspection: Yes normal to inspection Palpation (GI): Soft to palpation, Tenderness to palpation present (GI) in the LLQ and in the RLQ; with no rebound tenderness, no guarding and not rigid Auscultation: normal bowel sounds : General: Yes no CVA tenderness Back/Spine/Pelvis: Other: No midline thoracic/lumbar spinous tenderness/step-off or deformity Back: no CVA tenderness Skin: General skin exam: no rashes or lesions noted Rashes: no rashes Wounds: no wounds Neuro: Other: Strength intact throughout. Sensation intact to light touch. Neurovascular intact distally General: patient oriented x3, tone normal, moves all extremities, no meningeal signs, no focal motor deficits and CN's II-XI intact bilaterally Cranial nerves: Yes CN's II-XII intact bilaterally and Yes Equal, round and reactive pupils present Cognition (Neuro): normal cognition Motor exam (neuro): 5/5 motor strength present throughout and no tremor noted Extrem: General: Yes normal to inspection and Yes no pedal edema Psych: Appearance: grossly normal Results Labs CBC & Chem 7: 04/06/22 06:44 04/06/22 06:44 Labs: Short CBC 04/05/22 04/06/22 Range/Units 14:50 06:44 WBC 4.0 L 4.1 L (4.8-10.8) X10*3/uL Hgb 11.1 L 10.2 L (12.0-16.0) g/dl Hct 32.8 L 30.0 L (37.0-47.0) % Plt Count 119 L 100 L (160-400) X10*3/uL BMP 04/05/22 04/06/22 14:50 06:44 Sodium 142 139 Potassium 3.6 3.8 Chloride 105 106 Carbon Dioxide 20 L 16 L BUN 9 5 L Creatinine 0.69 0.65 Calcium 7.8 L 6.8 L D Liver Function 04/05/22 04/06/22 Range/Units 14:50 06:44 Total Bilirubin 0.9 1.4 H (0.0-1.0) mg/dL Direct Bilirubin 0.5 0.7 H (0.0-0.5) mg/dL AST 123 H 123 H (5-31) U/L ALT 47 H 42 H (0-31) U/L Alkaline Phosphatase 50 47 (39-117) U/L Albumin 3.6 3.3 L (3.5-5.0) g/dL Urine 04/05/22 Range/Units 19:33 Urine Color YELLOW Urine Appearance CLEAR Urine pH 5.0 (5.0-8.0) Ur Specific [place] 1.010 (1.005-1.025) Urine Protein NEG (NEG-TRACE) MG/DL Urine Glucose (UA) NEG (NEG) MG/DL Microbiology Microbiology Results: Microbiology 04/05/22 19:33 Urine clean catch - Urine [place] top Urine Culture - Preliminary Gram negative [facility] CT scan - abdomen: My impression: thickened appearing bowel, stool burden Assessment and Plan (1) Pancolitis: Status: Acute (2) Abnormal CT of the abdomen: Status: Acute (3) Alcohol abuse: Status: Acute Plan 1/ Seizure in patient with self admitted alcohol xs with incidental CT findings of pSBO, colitis but without any GI symptoms and soft non tender abdomen, but pos UA with nitrites which may also have contributed to her seizure. Stool studies sent and she is managing PO clears easily. Findings may be related to her seizure event. 2/ Pancytopenia, prob due to alcohol effect on bone marrow, possibly due to meds or b12/folate def 3/ abn LFT< maybe due to LESLIE or muscle injury from seizure PLAN: 1/ Advance diet as tolerated 2/ await stool studies 3/ if abdominal sx and concerning clinical signs develop then can expand work up to Ix for crohns 4/ check hep a,b,c serologies Procedures Date of Service Date of Service: 04/06/22
--- NOTE | 2022-04-06 14:42 | PC.NURSE ---
no pain, no n/v, skin wpd, tolerated clear liquids, wants to leave, will wait to see gi dr at hospitalist recomendation, feels 100%
[2022-04-06 15:28] VITALS: BP 111/74; PULSE 78; RESP 18; O2SAT 100
--- NOTE | 2022-04-06 15:35 | PC.NURSE ---
assumed care of pt, a&ox3, vss, pt requesting lidocaine patch for back pain and nicotine patch.
[2022-04-06] MEDS: Lidocaine 4 % Patch ADH..PATCH 1 PATCH TRANSDERMA (16:04)
[2022-04-06] MEDS: Nicotine 21 MG PATCH.TD24 TRANSDERMA (16:04)
--- NOTE | 2022-04-06 16:06 | PC.NURSE ---
medicated per provider order. nicotine patch R outer arm, lidocaine patch lower midback.
--- NOTE | 2022-04-06 16:12 | PM.EVENT ---
Event Note Date of Service: 04/06/22 Event Note: Patient seems and examined earlier the hospitalist service. Denies any abdominal pain or nausea vomiting currently Physical exam: Unchanged from H&P. Assessment plan: Coordinated in H&P note. Possible seizure episode: Alcohol withdrawal might be contributing Continue seizure medication, phenobarb lactic acid elevation possible sec to seizure. Abnormal CT abdomen: Denies any new symptoms, will start clear liquids, GI evaluation pending. Elevated LFTs-hepatitis profile, abdominal ultrasound pending. pancytopenia -possible alcohol use contributin added b12 and folate levels possible uti- continue antibiotics stool studies if diarrahe gi eval ct abd shows air in bladder-add urology eval. ? partial small-bowel obstruction: Less likely , no acute intervention as per surgery. .
[2022-04-06 21:06] VITALS: BP 136/84; PULSE 63; RESP 18; TEMP 36; O2SAT 100
--- NOTE | 2022-04-06 21:38 | PC.NURSE ---
RN-RN report called in by other nurse, pt transported up to unit.
[2022-04-06] MEDS: PHENobarbitaL 15 MG TABLET 45 MG PO (21:54)
[2022-04-06 23:25] VITALS: BP 125/87; PULSE 53; RESP 16; TEMP 36.1; O2SAT 100
[2022-04-07] VITALS: RESP 20
[2022-04-07] MEDS: cefTRIAXone sodium 1 GM in 0.9 % Sodium Chloride 50 ML IV (01:53)
[2022-04-07 03:14] VITALS: BP 112/82; PULSE 77; RESP 16; TEMP 36; O2SAT 100
[2022-04-07 03:34] LABS: HBc Num1 0.25 S/CO (0.00-0.79); Hepatitis B Core Antibody Nonreactive (Nonreactive); ~HepC Num1 0.08 S/CO (0.00-0.79); ~Hepatitis B Surface Antibody NONREACTIVE (Nonreactive); ~Hepatitis C Antibody Nonreactive (Nonreactive)
[2022-04-07 04:17] LABS: HBsAGNum2 Nonreactive; HBsAGNum3 Nonreactive; Hepatitis B Surface Antigen NEGATIVE (Negative)
[2022-04-07 05:49] LABS: Hematocrit 29.3 % (37.0-47.0); Hemoglobin 9.7 g/dl (12.0-16.0); Mean Corpuscular HGB Conc 33.1 g/dl (31.0-35.0); Mean Corpuscular Hemoglobin 33.1 pg (27.0-33.0); Mean Platelet Volume 10.5 fL (9.4-12.3); Red Blood Count 2.93 X10*6/uL (4.20-5.50); Red Cell Distribution Width 11.9 % (11.0-16.0); White Blood Count 3.7 X10*3/uL (4.8-10.8)
[2022-04-07 05:50] LABS: Folate 16.7 ng/mL (> or = 4.0); Vitamin B12 557 pg/mL (200-900)
[2022-04-07 05:54] LABS: Platelet Count 96 X10*3/uL (160-400)
[2022-04-07 06:13] LABS: Anion Gap 16 (12-20); Blood Urea Nitrogen 2 mg/dL (9-16); Calcium 7.1 mg/dL (8.4-10.2); Carbon Dioxide 23 mmol/L (22-29); Chloride 101 mmol/L (96-108); Creatinine Clr Calc Pharmacy 132.1; Estimated Glomerular Filt Rate > 60; Glucose Random 88 mg/dL (60-115); Potassium 3.1 mmol/L (3.3-5.1); Sodium 137 mmol/L (135-145)
[2022-04-07] MEDS: Enoxaparin Sodium 40 MG/0.4 ML SYRINGE SUBCUT (06:26)
[2022-04-07 07:51] VITALS: BP 129/95; PULSE 65; RESP 18; TEMP 36.2; O2SAT 100
[2022-04-07 08:17] LABS: Lactic Acid 1.1 mmol/L (0.5-2.0)
[2022-04-07] MEDS: Potassium Chloride Packet 20 MEQ PACKET 40 MEQ PO (08:35)
[2022-04-07] MEDS: Folic Acid 1 MG TABLET PO (08:36)
[2022-04-07] MEDS: Lactated Ringers 1,000 ML 100 ML IVCONT (08:36)
[2022-04-07] MEDS: PHENobarbitaL 15 MG TABLET 45 MG PO (08:36)
[2022-04-07] MEDS: Lidocaine 4 % Patch ADH..PATCH 1 PATCH TRANSDERMA (08:36)
[2022-04-07] MEDS: Thiamine HCL 100 MG TABLET PO (08:36)
[2022-04-07] MEDS: Nicotine 21 MG PATCH.TD24 TRANSDERMA (08:37)
[2022-04-07 10:34] LABS: Magnesium 1.5 mg/dL (1.6-2.6)
--- NOTE | 2022-04-07 10:55 | P.CDIC_ITS ---
CDI Concurrent Query Documentation Clarification: PHYSICIAN'S DOCUMENTATION REQUEST Date of Query: 04/07/22 1056 Patient Name: Mignon Suresh Admit Date: 04/06/22 Dear Doctor, A review of the medical record indicates additional documentation may be needed. Please review below and update the documentation accordingly. Clinical Indicators: Is there a diagnosis that correlates with these lab findings: Risk Factors/Clinical Indicators/Treatments Labs: potassium 3.1 L Klor-con Based on the above, could you clarify in the Progress Notes the appropriate diagnosis, if significant, that supports the above abnormalities and additional evaluation, monitoring, and/or treatment rendered: * Hypokalemia or other etiology of lab findings * Labs indicate a diagnosis of (please specify) * Other (please specify) * Unable to determine Use of terms such as suspected, likely, concern for, or probable (associated with a specific diagnosis that is being evaluated, monitored, or treated as if it exists) are acceptable and can be coded in the inpatient setting, when documented at the time of discharge. Thank you, Nicki Greene [facility], CDIS Extension: [phone] Please use your independent medical judgment in providing your response. THIS QUERY IS PART OF THE PERMANENT MEDICAL RECORD Provider Response: Other Other Diagnosis: Hypokalemia and magnesemia repleted
[2022-04-07 11:32] VITALS: BP 123/97; PULSE 75; RESP 18; TEMP 36.4; O2SAT 100
--- NOTE | 2022-04-07 12:22 | P.DS_ITS ---
DS: Providers Provider Date of Service: 04/07/22 Date of admission: 04/06/22 12:36 Primary care physician: Unknown Physician Consults: 04/05/22 17:56 Consult to General Surgery Stat Consulting Provider: Salvador Lucero Reason for consultation: Partial SBO. Pancolitis Has provider been notified: Yes 04/06/22 06:03 Consult to Gastroenterology Routine Consulting Provider: Kavya Cedillo Reason for consultation: IBD? Has provider been notified: No 04/06/22 16:21 Consult to Urology Routine Consulting Provider: Marcel Gonzalez Reason for consultation: air in urinary bladder unclaer etiology, uti Has provider been notified: No DS: Diagnosis Discharge Diagnosis (1) Pancolitis: Status: Acute (2) Abnormal CT of the abdomen: Status: Acute (3) Alcohol abuse: Status: Acute DS: Summary Hospital Course Hospital Course: 26-year-old female with past medical history of epilepsy, as well as alcohol abuse presents to the hospital with complaints of seizure episode.? Patient reports compliance with her lamotrigine and reports that her last drink was 2 days prior to presentation, this seizure episode was witnessed and patient reports that she was postictal but she knew what happened to her.? She denies any head trauma, but right now complaining of periorbital swelling with no hives, no rash, no itching, no difficulty breathing or swelling in her mouth or lips. Patient reports that she is currently withdrawing from alcohol, she is feeling anxious, tremulous.? Her CT abdomen showed possible IBD, when asked about symptoms patient denied any abdominal pain, no recent diarrhea, no nausea or vomiting, no fever or chills.? She does have urinary frequency. Patient denies any headache, no chest pain, no shortness of breath, no palpitations, no lower extremity edema. On arrival to the ED patient hemodynamically stable with no significant abnormal vitals Labs are significant for WBC count of 4.0, hemoglobin of 10.2, hematocrit of.? A, lactic acid of 4.2, UA positive for nitrites and WBC and alcohol level of 304 ?Imaging including chest x-ray negative, head CT shows no intracranial hemorrhage or other acute intracranial abnormality, cervical spine shows no subluxation or acute cervical spine fracture CT abdomen shows pancolonic wall thickening with prominence of the mesenteric vessels and stratified by lamina or enhancement with suspected wall thickening involving the terminal ileum raising the suspicion for inflammatory bowel disease.? Patient also has evidence of partial small-bowel obstruction. Patient started on phenobarb, IV antibiotics and will be admitted for further management. Hospital course: Patient came to the hospital because of seizure episode secondary to alcohol alcohol withdrawal-treated with supportive care hydration and phenobarb. Seems to be improved. Pancytopenia: Unclear if chronic, possibly alcohol use is contributing. Patient takes folic acid at home, patient is to follow-up CBC with PCP in out patiently in 1 week and further workup out patiently, consider outpatient hematology evaluation. Patient has abnormal CT scan abdomen: Possible finding of colitis but patient does not have any symptoms Also in addition patient has elevated LFTs possibly related to alcohol use. Patient is to follow up with GI out patiently for CT abdomen finding above as well as elevated LFTs, monitor LFT out patiently. Hypokalemia and hypomagnesemia repleted, monitor BMP outpatient with PCP. Limited supply of potassium and magnesium given. UTI: Patient urine grew E coli-started on IV antibiotics, seems improved going home with p.o. antibiotics. Follow-up outpatient with PCP for above. plan: Please complete the course of antibiotics. Monitor liver functions, BMP, CBC as above mentioned. Follow-up with the GI and PCP for further management of elevated LFTs, pancytopenia, abnormal ab abdominal CT. If condition worsen including significant abdominal pain or diarrhea or fever or chills please come to the nearest emergency room for further evaluation. Time Spent with Patient Time attestation: Total time spent providing and/or coordinating discharge services: Discharge coordination time: Greater than 30 minutes Quality: Safe Use of Opioids Does Pt have an Active Cancer Diagnosis on the Problem List?: No Quality: Stroke Does the patient have a stroke diagnosis?: No Physical Exam Vital Signs: Vital Signs: Last Vital Signs Temp 97.5 F 04/07/22 11:32 Pulse 75 04/07/22 11:32 Resp 18 04/07/22 11:32 BP 123/97 H 04/07/22 11:32 Pulse Ox 100 04/07/22 11:32 O2 Del Method 04/07/22 11:32 BMI result Body Mass Index 19.8 Appearance: Alert.? Oriented X3.? not in distress.? Eyes: Pupils equal, round and reactive to light.? Sclera nonicteric.? ENT: Pharynx normal.? Moist mucous membranes. cvs: rrr, [id number] , no murmur res: clear to auscultation ,no rhonchii or wheezing abd: no rebound or guarding ,nt, bs present. ext pulses present , no cyanosis. neuro: axo3 , nonfocal. DS: Data Data Completed and Pending Labs on day of discharge: Laboratory Results - last 24 hr 04/06/22 04/06/22 04/07/22 09:04 09:04 05:06 WBC 3.7 L RBC 2.93 L Hgb 9.7 L Hct 29.3 L MCV 100.0 H MCH 33.1 H MCHC 33.1 RDW 11.9 Plt Count 96 L MPV 10.5 Absolute Nucleated RBC 0.000 Nucleated RBC % (auto) 0.0 Sodium Potassium Chloride Carbon Dioxide Anion Gap BUN Creatinine Estim Creat Clear Calc Estimated GFR Random Glucose Lactic Acid Calcium Magnesium Vitamin B12 557 Folate 16.7 Hep Bs Antigen Not Reportable Hep Bs Antigen (2) NEGATIVE Hep Bs Antibody NONREACTIVE Hep B Core Total Ab Nonreactive Hepatitis C Ab (EIA) Nonreactive 04/07/22 04/07/22 05:06 07:55 WBC RBC Hgb Hct MCV MCH MCHC RDW Plt Count MPV Absolute Nucleated RBC Nucleated RBC % (auto) Sodium 137 Potassium 3.1 L Chloride 101 Carbon Dioxide 23 Anion Gap 16 BUN 2 L D Creatinine 0.59 Estim Creat Clear Calc 132.1 Estimated GFR > 60 Random Glucose 88 Lactic Acid 1.1 Calcium 7.1 L Magnesium 1.5 L Vitamin B12 Folate Hep Bs Antigen Hep Bs Antigen (2) Hep Bs Antibody Hep B Core Total Ab Hepatitis C Ab (EIA) Additional Comments Additional comments: US/US SMA IMPRESSION: Slightly enlarged echogenic liver. Normal abdominal Doppler exam. US/US duplex arterial venous comp IMPRESSION: Slightly enlarged echogenic liver. Normal abdominal Doppler exam. XR/XR chest 1V IMPRESSION: No acute pulmonary process. ? CT/CT abdomen pelvis w con IMPRESSION: ? Pancolonic wall thickening with prominence of the mesenteric vessels and stratified bilaminar enhancement with suspected wall thickening involving the terminal ileum, raising the suspicion for inflammatory bowel disease, although infectious enterocolitis could be considered. There are mildly dilated loops of small bowel measuring up to 3.1 cm which transitions in the left pelvis with some moderate wall thickening at the transition point raising the suspicion for a partial small bowel obstruction, possibly secondary to underlying stricture. ? Foci of gas are noted within the lumen of the bladder. Recommend correlation with any recent instrumentation. If findings are not iatrogenic, fistula or infection would be another differential considerations. ? Hypoattenuating hepatic parenchyma suggesting hepatic steatosis.? Discharge Plan Discharge Patient Disposition: Home, Self-Care Discharge Diagnosis: seizure episode,abnormal ct scan,uti,pancytopenia ,elevated liver function Referrals: [facility] [Provider Group] Marcel Gonzalez MD [Physician] - 2 Weeks (follow up outpatiently) Marjan Vásquez MD [Physician] - 2 Weeks (follow up ) Kavya Cedillo MD [Physician] - 1 week Physician,Antoni J [Primary Care Provider] - Discharge Medications: New cefuroxime axetil 250 mg tablet 250 mg PO Q12H Qty: 10 0RF thiamine HCl (vitamin B1) 100 mg tablet 100 mg PO DAILY Qty: 30 0RF magnesium oxide 400 mg (241.3 mg magnesium) Tablet 800 mg PO DAILY Qty: 7 0RF potassium chloride 8 mEq capsule, extended release 8 meq PO DAILY Qty: 4 0RF Continued folic acid 1 mg tablet 1 tab PO DAILY lamotrigine 300 mg tablet extended release 24hr 1 tab PO DAILY Nortrel 1/35 (21) 1-35 mg-mcg (21) tablet 1 tab PO DAILY Discharge Orders: Discharge Order (Routine); Ordered 04/07/22 Ordered By: Eamon Hobson Diet: Advance to usual diet Activity on Discharge: As tolerated Stand Alone Forms: Patient Portal Discharge page Other Ambulatory Orders: Basic Metabolic Panel (Routine) Timeframe: 1 Week Facility: [facility] - Location: Laboratory Ordered By: Eamon Hobson Complete Blood Count no Diff (Routine) Timeframe: 1 Week Facility: [facility] - Location: Laboratory Ordered By: Eamon Hobson Liver Panel (Routine) Timeframe: 1 Week Facility: [facility] - Location: Laboratory Ordered By: Eamon Hobson Care Plan Goals: Patient came to the hospital because of seizure episode secondary to alcohol alcohol withdrawal-treated with supportive care hydration and phenobarb. Seems to be improved. Pancytopenia: Unclear if chronic, possibly alcohol use is contributing. Patient takes folic acid at home, patient is to follow-up CBC with PCP in out patiently in 1 week and further workup out patiently, consider outpatient hematology evaluation. Patient has abnormal CT scan abdomen: Possible finding of colitis but patient does not have any symptoms Also in addition patient has elevated LFTs possibly related to alcohol use. Patient is to follow up with GI out patiently for CT abdomen finding above as well as elevated LFTs, monitor LFT out patiently. Hypokalemia and hypomagnesemia repleted, monitor BMP outpatient with PCP. Limited supply of potassium and magnesium given. mild air in bladder possible sec to uti , follow up with urology outpatient. UTI: Patient urine grew E coli-started on IV antibiotics, seems improved going home with p.o. antibiotics. Follow-up outpatient with PCP for above. Health Concerns: Please complete the course of antibiotics. Monitor liver functions, BMP, CBC as above mentioned. Follow-up with the GI and PCP for further management of elevated LFTs, pancytopenia, abnormal ab abdominal CT. If condition worsen including significant abdominal pain or diarrhea or fever or chills please come to the nearest emergency room for further evaluation. Plan of Treatment: As above. Assessment: As above. Patient Instructions: Urinary Tract Infection in Women (ED), Abuse of Alcohol (ED), Colitis (ED), Pancytopenia (DC)
--- NOTE | 2022-04-07 12:22 | MHC.CM.PN ---
DISCHARGED HOME - SELF CARE RN AWARE OF PLAN
[2022-04-07] MEDS: Magnesium Oxide 400 MG TABLET 800 MG PO (12:26)
[2022-04-09 04:59] LABS: Hepatitis A Antibody IgM 0.13 Index (0-0.79); ~Hepatitis A Antibody IgM Nonreactive (Nonreactive)
[2022-04-09 14:51] LABS: Haptoglobin 28 mg/dL (43-212)
[2022-04-09 23:06] LABS: Lamotrigine Lamictal 9.3 mcg/mL (4.0-18.0)
== END 2022-04-07 13:31 | disposition home or self-care (01) | DRG 245 ==
LOC: HO.ED 04-06 01:38 → HO.EDOVER 04-06 02:38 → HO.S3 04-06 18:14
PROVIDERS: Internal Medicine Gastroenterology; Physician Assistant; Admitting Provider Internal Medicine; Emergency Provider Emergency Medicine Emergency Medical Services; PCP Internal Medicine; Visit Provider Internal Medicine
DX: K51.012 Ulcerative (chronic) pancolitis with intestinal obstruction (principal); D61.818 Other pancytopenia; E83.42 Hypomagnesemia; F10.239 Alcohol dependence with withdrawal, unspecified; F17.210 Nicotine dependence, cigarettes, uncomplicated; Y90.8 Blood alcohol level of 240 mg/100 ml or more; N39.0 Urinary tract infection, site not specified; B96.20 Unspecified Escherichia coli [E. coli] as the cause of diseases classified elsewhere; E87.6 Hypokalemia; G40.509 Epileptic seizures related to external causes, not intractable, without status epilepticus; Z20.822 Contact with and (suspected) exposure to COVID-19; Z71.6 Tobacco abuse counseling; Z79.3 Long term (current) use of hormonal contraceptives; Z79.899 Other long term (current) drug therapy
CPT/HCPCS: 36415; 70450; 71045; 72125; 74177; 76700; 80048; 80076; 80143; 80175; 80179; 80307; 81001; 81025; 82077; 82150; 82607; 82746; 83010; 83605; 83690; 83735; 84484; 84702; 85025; 85027; 85384; 85610; 85652; 85730; 86140; 86704; 86706; 86709; 86803; 87086; 87088; 87186; 87340; 87507; 87635; 89055; 93005; 93975; 93976; 96361; 96374; 96375; 99285; J0696; J1650; J1956; J2405; J2560; Q9967

== ENCOUNTER 2022-04-16 10:18 | Outpatient (REF) | payer OTHER, SELFPAY ==
[2022-04-16 12:59] LABS: Alanine Aminotransferase 22 U/L (0-31); Alkaline Phosphatase 37 U/L (39-117); Anion Gap 19 (12-20); Aspartate Amino Transferase 23 U/L (5-31); Bilirubin Total 0.5 mg/dL (0.0-1.0); Blood Urea Nitrogen 10 mg/dL (9-16); Calcium 9.9 mg/dL (8.4-10.2); Carbon Dioxide 22 mmol/L (22-29); Chloride 103 mmol/L (96-108); Estimated Glomerular Filt Rate > 60; Glucose Random 92 mg/dL (60-115); Potassium 4.6 mmol/L (3.3-5.1); Sodium 139 mmol/L (135-145)
[2022-04-20 19:48] LABS: Calcium, Ionized 5.1 mg/dL (4.8-5.6)
[2022-04-22 20:37] LABS: Calprotectin, Fecal <5 mcg/g
== END 2022-04-16 10:19 | disposition home or self-care (01) ==
LOC: HO.LAB 10:18
PROVIDERS: PCP Pediatrics; Visit Provider Internal Medicine
DX: R93.5 Abnormal findings on diagnostic imaging of other abdominal regions, including retroperitoneum (principal); R74.8 Abnormal levels of other serum enzymes; E83.42 Hypomagnesemia; E83.51 Hypocalcemia; R19.7 Diarrhea, unspecified
CPT/HCPCS: 36415; 80048; 82247; 82330; 83735; 83993; 84075; 84450; 84460; 86140; 99202